=== PATIENT | female | born 1970 | race Hispanic/Latino ===

== ENCOUNTER 2017-07-03 09:57 | Outpatient (CLI) | payer OTHER ==
--- OUTSIDE RECORDS SUMMARY | 2017-07-03 10:01 | XMS | Clinical Summary ---
:1970 Author Organization [facility] Address [address] [place] [address] Phone Care Team Providers Name Role Phone , Primary Care Provider Unavailable Allergies Not on File Current Medications Not on file Active Problems Not on file Social History Tobacco Use Types Packs/Day Years Used Date Never Assessed Sex Assigned at Date Recorded Not on file Last Filed Vital Signs Not on file Plan of Treatment Not on file Results Not on filefrom Last 3 Months
--- OUTSIDE RECORDS SUMMARY | 2017-07-03 10:02 | XMS ---
:1970 Author Organization [facility] Care Team Providers Name Role Phone WEERATUNGE, CHAMALEE Unavailable Unavailable WEERATUNGE, CHAMALEE Unavailable Unavailable WEERATUNGE, CHAMALEE Unavailable Unavailable WEERATUNGE, CHAMALEE Unavailable Unavailable WEERATUNGE, CHAMALEE Unavailable Unavailable WEERATUNGE, CHAMALEE Unavailable Unavailable WEERATUNGE, CHAMALEE Unavailable Unavailable WEERATUNGE, CHAMALEE Unavailable Unavailable JOSSELINE, RAJAT Unavailable Unavailable JOSSELINE, RAJAT Unavailable Unavailable JOSSELINE, RAJAT Unavailable Unavailable JOSSELINE, RAJAT Unavailable Unavailable JOSSELINE, RAJAT Unavailable Unavailable JOSSELINE, RAJAT Unavailable Unavailable JOSSELINE, RAJAT Unavailable Unavailable JOSSELINE, RAJAT Unavailable Unavailable JOSSELINE, RAJAT Unavailable Unavailable JOSSELINE, RAJAT Unavailable Unavailable JOSSELINE, RAJAT Unavailable Unavailable Emilia, Maurisio Unavailable Emilia, Maurisio Unavailable Emilia, Maurisio Unavailable Emilia, Maurisio Unavailable Emilia, Maurisio Unavailable Emilia, Maurisio Unavailable Emilia, Maurisio Unavailable RAMON, NE Unavailable Unavailable RAMON, NE Unavailable Unavailable RAMON, NE Unavailable Unavailable RAMON, NE Unavailable Unavailable RAMON, NE Unavailable Unavailable RAMON, NE Unavailable Unavailable RAMON, NE Unavailable Unavailable RAMON, NE Unavailable Unavailable RAMON, NE Unavailable Unavailable RAMON, NE Unavailable Unavailable RAMON, NE Unavailable Unavailable Lydia, Lacy Unavailable Unavailable Lydia, Lacy Unavailable Unavailable Encounters Encounter Providers Location Date Indications Data Source(s) Outpatient Attender: NE 07/01/2015 [facility] MD 09:54:24 AM CDT Outpatient Attender: Maurisio Nieto 07/27/2014 [facility] 02:22:17 PM CDT Outpatient Attender: Maurisio Nieto 05/15/2014 [facility] 01:50:40 PM CDT Outpatient Attender: RAJAT MANJARREZ 12/17/2014 [facility] 09:01:50 AM CDT Outpatient Attender: RAJAT MANJARREZ 05/18/2015 [facility] 03:44:57 PM CDT Outpatient Attender: Maurisio Nieto 03/30/2015 [facility] 01:02:34 PM CDT Outpatient Attender: RAJAT MANJARREZ 03/08/2015 [facility] 03:04:24 PM CDT Outpatient Attender: Maurisio Nieto 12/21/2014 [facility] 03:49:15 PM CDT Outpatient Attender: Maurisio Nieto 12/31/2014 [facility] 01:14:01 PM CDT Outpatient Attender: RAJAT MANJARREZ 09/11/2014 [facility] 10:42:05 AM 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 Outpatient Attender: RAJAT MANJARREZ 09/08/2014 [facility] 04:03:36 PM 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 Outpatient Attender: Maurisio Nieto 06/11/2014 [facility] 02:42:29 PM CDT Outpatient Attender: RAJAT MANJARREZ 07/17/2014 [facility] 09:53:39 AM CDT Outpatient Attender: Maurisio Nieto 05/18/2014 [facility] 09:16:28 AM CDT Outpatient Attender: ERLINDA 12/18/2013 [facility] OTF COOKdmitter: 02:18:13 PM CDT ERLINDA VANESSA - 12/18/2013 MDReferrer: ERLINDA 11:59:59 PM CDT [facility] Outpatient Attender: Laila Freeman 12/10/2012 [facility] 08:13:59 AM CDT - 12/10/2012 02:26:56 PM CDT Outpatient Attender: Laila Freeman 12/11/2012 [facility] 08:09:59 AM CDT Outpatient Attender: Laila Freeman 12/23/2012 [facility] 04:11:07 PM CDT Outpatient Attender: Laila Freeman 12/16/2012 [facility] 09:29:17 PM CDT Outpatient Attender: Laila Freeman 02/19/2012 [facility] 11:14:36 AM CDT - 02/19/2012 02:48:02 PM CDT Outpatient Attender: Laila Freeman 02/13/2012 [facility] 08:05:37 AM CDT - 02/13/2012 12:46:15 PM CDT Outpatient Attender: Laila Freeman 11/24/2011 [facility] 08:23:42 AM 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 Outpatient Attender: Laila Freeman 11/21/2011 [facility] 08:32:31 AM 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 - 11/21/2011 12:19:36 PM 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 Outpatient Attender: Laila Freeman 11/26/2011 [facility] 09:14:36 PM 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 Outpatient Attender: Laila Freeman 10/26/2011 [facility] 01:08:09 PM 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 Outpatient Attender: Laila Freeman 10/29/2011 [facility] 08:55:12 PM 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 Immunizations Vaccine Date Status Description Data Source(s) Pneumococcal vaccine 12/23/2012 04:11:07 completed [facility] PM CDT Influenza vaccine 12/23/2012 04:11:07 completed [facility] PM CDT Tdap 12/23/2012 04:11:07 completed [facility] PM CDT Pneumococcal vaccine 12/16/2012 09:29:17 completed [facility] PM CDT Influenza vaccine 12/16/2012 09:29:17 completed [facility] PM CDT Tdap 12/16/2012 09:29:17 completed [facility] PM CDT Influenza vaccine 12/11/2012 09:00:00 completed [facility] AM CDT Tdap 12/11/2012 09:00:00 completed [facility] AM CDT Pneumococcal vaccine 12/11/2012 09:00:00 completed [facility] AM CDT Tdap 12/10/2012 08:30:00 completed [facility] AM CDT Pneumococcal vaccine 12/10/2012 08:30:00 completed [facility] AM CDT Influenza vaccine 12/10/2012 08:30:00 completed [facility] AM CDT FLU VACCINE 3 YRS & >IM 02/19/2012 11:30:00 completed [facility] AM CDT TDAP VACCINE 7 YRS/>IM 02/19/2012 11:30:00 completed [facility] AM CDT PNEUMOCOCCAL VACCINE 02/19/2012 11:30:00 completed [facility] AM CDT FLU VACCINE 3 YRS & >IM 02/13/2012 08:10:00 completed [facility] AM CDT PNEUMOCOCCAL VACCINE 02/13/2012 08:10:00 completed [facility] AM CDT TDAP VACCINE 7 YRS/>IM 02/13/2012 08:10:00 completed [facility] AM CDT PNEUMOCOCCAL VACCINE 11/26/2011 09:14:36 completed [facility] PM 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 FLU VACCINE 3 YRS & >IM 11/26/2011 09:14:36 completed [facility] PM 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 TDAP VACCINE 7 YRS/>IM 11/26/2011 09:14:36 completed [facility] PM 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 FLU VACCINE 3 YRS & >IM 11/24/2011 08:23:42 completed [facility] AM 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 PNEUMOCOCCAL VACCINE 11/24/2011 08:23:42 completed [facility] AM 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 TDAP VACCINE 7 YRS/>IM 11/24/2011 08:23:42 completed [facility] AM 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 TDAP VACCINE 7 YRS/>IM 11/21/2011 08:30:00 completed [facility] AM 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 FLU VACCINE 3 YRS & >IM 11/21/2011 08:30:00 completed [facility] AM 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 PNEUMOCOCCAL VACCINE 11/21/2011 08:30:00 completed [facility] AM 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 PNEUMOCOCCAL VACCINE 10/29/2011 08:55:12 completed [facility] PM 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 TDAP VACCINE 7 YRS/>IM 10/29/2011 08:55:12 completed [facility] PM 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 FLU VACCINE 3 YRS & >IM 10/29/2011 08:55:12 completed [facility] PM 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 TDAP VACCINE 7 YRS/>IM 10/26/2011 01:30:00 completed [facility] PM 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 PNEUMOCOCCAL VACCINE 10/26/2011 01:30:00 completed [facility] PM 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 FLU VACCINE 3 YRS & >IM 10/26/2011 01:30:00 completed [facility] PM 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 Medications Medication Brand Start Product Dose Route Administrative Pharmacy Status Indications Reaction Data Name Date Form Instructions Instructions Source(s) HYDROCHLORO hydroc 30 take 1 tablet [facility] THIAZIDE hlorot Table by oral route TABLETS 100 hiazid t every day MG 12.5 mg e 12.5 mg tablet 0.025 % 1 instill 1 drop client to [facility] (0.035 %) Bottl by ophthalmic purchase OTC e route 2 times every day into affected eye(s) HYDROCHLORO hydroc 30 take 1/2 [facility] THIAZIDE hlorot Table tablet by oral TABLETS 100 hiazid t route every MG 25 mg e 25 morning mg tablet 25 take 1 tablet [facility] 2011 (25MG) by oral 12:12: route 3 times 33 PM every day as CDT needed DICLOFENAC diclof 60 take 1 tablet [facility] SODIUM enac Table by oral route 2 DELAYED sodium t times every day RELEASE 75 mg TABLETS 100 tablet MG 75 mg ,delay ed releas e 6.5 3gtts bilat R label in [facility] 2011 ear(s) once a Bangladeshi 08:52: day x 3 days 37 AM CDT 10 mg 30 take 1 tablet label in [facility] Table (10MG) by oral Bangladeshi t route every day 5-120 mg 10 take 1 tablet [facility] Table by oral route t every 12 hours OMEPRAZOLE omepra 30 take 1 capsule [facility] CAPSULES zole Capsu by oral route DELAYED 20 mg le every day 30 RELEASE capsul minutes to 1 1000 MG 20 e,ayden hour before a mg yed meal releas e SUMATRIPTAN sumatr 6 take 1 Tablet [facility] SUCCINATE iptan Table by oral route TABLETS 9 50 mg t once with TABLETS MG tablet fluids, may 50 mg repeat in 2 hours, no more than 4tabs in a day PROVERA Advertising Coordinator 10 take 1 tablet [facility] TABLETS 500 a 10 Table by oral route MG 10 mg mg t every day for tablet 10 days 250 take 2 tablet [facility] 2011 (500MG) by 08:25: oral route 25 AM every 12 hours 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 for 7 days Insurance Providers Payer name Policy type Policy ID Covered Covered republican's Policy Plan / Coverage republican ID relationship to Mae Information type mae [employer] Other [id number] Healthcare 23_IN_1 [employer] Other [id number] Healthcare 78_IN_1 [employer] Other [id number] Healthcare 33 Ministries men Plan Monique NOT_[id number] 31 Medical Slide UNK NOT_VALID_[phone] [facility] Medical UNK NOT_VALID_1446 Slide [phone] [facility] Medical UNK NOT_VALID_1437 Slide [phone] Medical Slide UNK NOT_VALID_[phone] [facility] Medical UNK NOT_VALID_1353 Slide [phone] [employer] UNK NOT_VALID_1279 Slide [phone] [employer] UNK NOT_VALID_1318 Slide [phone] Medical Slide UNK NOT_VALID_[phone] [employer] Other NOT_VALID_[id number] Healthcare 975 [employer]ries [employer] Other NOT_VALID_1257 Healthcare 666 Ministries [employer] UNK NOT_VALID_1521 Slide [phone] [facility] [employer] UNK NOT_VALID_1256 Slide [phone] [facility] [employer] UNK NOT_VALID_1502 Slide [phone] [facility] UNK NOT_VALID_1610 Slide [phone] Government/S NOT_VALID_[id number] montes 214_IN_1 Problems, Conditions, and Diagnoses Code Display Name Description Effective Dates Data Source(s) Z68.29 Body mass index (BMI) Body mass index (BMI) 07/01/2015 [facility] 29.0-29.9, adult 29.0-29.9, adult 09:54:24 AM CDT J30.1 Allergic rhinitis due to Allergic rhinitis due 07/01/2015 [facility] pollen to pollen 09:54:24 AM CDT I10 Essential (primary) Essential (primary) 07/01/2015 [facility] hypertension hypertension 09:54:24 AM CDT 401.9 UNSPECIFIED ESSENTIAL HYPERTENSION NOS 12/21/2014 [facility] HYPERTENSION 03:49:15 PM CDT 620.2 OTHER AND UNSPECIFIED OVARIAN CYST NEC/NOS 12/17/2014 [facility] OVARIAN CYST 09:01:50 AM CDT 218.9 LEIOMYOMA OF UTERUS UTERINE LEIOMYOMA NOS 12/17/2014 [facility] UNSPECIFIED 09:01:50 AM CDT 620.2 OTHER AND UNSPECIFIED OVARIAN CYST NEC/NOS 09/11/2014 [facility] OVARIAN CYST 10:42:05 AM 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 218.9 LEIOMYOMA OF UTERUS UTERINE LEIOMYOMA NOS 09/11/2014 [facility] UNSPECIFIED 10:42:05 AM 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 218.9 LEIOMYOMA OF UTERUS UTERINE LEIOMYOMA NOS 07/27/2014 [facility] UNSPECIFIED 02:22:17 PM CDT 285.9 ANEMIA UNSPECIFIED ANEMIA NOS 07/27/2014 [facility] 02:22:17 PM CDT 620.2 OTHER AND UNSPECIFIED OVARIAN CYST NEC/NOS 07/17/2014 [facility] OVARIAN CYST 09:53:39 AM CDT 218.9 LEIOMYOMA OF UTERUS UTERINE LEIOMYOMA NOS 07/17/2014 [facility] UNSPECIFIED 09:53:39 AM CDT 789.00 ABDOMINAL PAIN ABDMNAL PAIN UNSPCF 06/11/2014 [facility] UNSPECIFIED SITE SITE 02:42:29 PM CDT 626.4 IRREGULAR MENSTRUAL IRREGULAR 05/15/2014 [facility] CYCLE MENSTRUATION 01:50:40 PM CDT 625.9 UNSPECIFIED SYMPTOM FEM GENITAL SYMPTOMS 05/15/2014 [facility] ASSOCIATED WITH FEMALE NOS 01:50:40 PM CDT GENITAL ORGANS V72.31 ROUTINE GYNECOLOGICAL ROUTINE NURSE CHEMICAL DEPENDENCY 05/15/2014 [facility] EXAMINATION EXAMINATION 01:50:40 PM CDT 789.00 ABDOMINAL PAIN ABDMNAL PAIN UNSPCF 05/15/2014 [facility] UNSPECIFIED SITE SITE 01:50:40 PM CDT V76.10 BREAST SCREENING SCRN MAL MARIE BREAST 12/11/2012 [facility] UNSPECIFIED NOS 08:09:59 AM CDT V72.31 ROUTINE GYNECOLOGICAL ROUTINE NURSE CHEMICAL DEPENDENCY 12/10/2012 [facility] EXAMINATION EXAMINATION 08:13:59 AM CDT 780.4 DIZZINESS AND GIDDINESS DIZZINESS AND 02/19/2012 [facility] GIDDINESS 11:14:36 AM CDT 380.4 IMPACTED CERUMEN IMPACTED CERUMEN 02/13/2012 [facility] 08:05:37 AM CDT 616.10 VAGINITIS AND VAGINITIS NOS 11/24/2011 [facility] VULVOVAGINITIS 08:23:42 AM 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 UNSPECIFIED V72.31 ROUTINE GYNECOLOGICAL ROUTINE NURSE CHEMICAL DEPENDENCY 11/21/2011 [facility] EXAMINATION EXAMINATION 08:32:31 AM 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 790.6 OTHER ABNORMAL BLOOD ABN BLOOD CHEMISTRY 10/29/2011 [facility] CHEMISTRY NEC 08:55:12 PM 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 462 ACUTE PHARYNGITIS ACUTE PHARYNGITIS 10/26/2011 [facility] 01:08:09 PM 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 477 ALLERGIC RHINITIS ALLERGIC RHINITIS 10/26/2011 [facility] 01:08:09 PM 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 796.2 ELEVATED BLOOD PRESSURE ELEV BL PRES W/O 10/26/2011 [facility] READING WITHOUT HYPERTN 01:08:09 PM 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 DIAGNOSIS OF HYPERTENSION V74.1 SCREENING EXAMINATION SCREENING EXAMINATION CT FOR PULMONARY FOR PULMONARY TUBERCULOSIS TUBERCULOSIS V74.1 SCREENING EXAMINATION SCREENING EXAMINATION CT FOR PULMONARY FOR PULMONARY TUBERCULOSIS TUBERCULOSIS Surgeries/Procedures Procedure Date Indications Data Source(s) OFFICE/OUTPATIENT VISIT EST 07/01/2015 09:54:24 AM [facility] CDT Betamethasone acet&sod phosp 07/01/2015 09:54:24 AM [facility] CDT OFFICE/OUTPATIENT VISIT EST 12/21/2014 03:49:15 PM [facility] CDT OFFICE/OUTPATIENT VISIT EST 12/17/2014 09:01:50 AM [facility] CDT OFFICE/OUTPATIENT VISIT EST 09/11/2014 10:42:05 AM [facility] 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 OFFICE/OUTPATIENT VISIT EST 07/27/2014 02:22:17 PM [facility] CDT OFFICE/OUTPATIENT VISIT NEW 07/17/2014 09:53:39 AM [facility] CDT URINALYSIS AUTO W/SCOPE 06/11/2014 02:42:29 PM [facility] CDT OFFICE/OUTPATIENT VISIT EST 06/11/2014 02:42:29 PM [facility] CDT OFFICE/OUTPATIENT VISIT EST 05/15/2014 01:50:40 PM [facility] CDT URINE TEST 05/15/2014 01:50:40 PM [facility] CDT OFFICE/OUTPATIENT VISIT EST 12/11/2012 08:09:59 AM [facility] CDT DETECT AGNT MULT DNA DIREC 12/10/2012 08:13:59 AM [facility] CDT HIV-1ANTIBODY 12/10/2012 08:13:59 AM [facility] CDT CHYLMD TRACH DNA DIR PROBE 12/10/2012 08:13:59 AM [facility] CDT LIPID PANEL 12/10/2012 08:13:59 AM [facility] CDT CYTOPATH TBS C/V MANUAL 12/10/2012 08:13:59 AM [facility] CDT PREV VISIT EST AGE 40-64 12/10/2012 08:13:59 AM [facility] CDT ASSAY THYROID STIM HORMONE 12/10/2012 08:13:59 AM [facility] CDT COMPLETE CBC W/AUTO DIFF WBC 12/10/2012 08:13:59 AM [facility] CDT SYPHILIS TEST NON-TREP QUAL 12/10/2012 08:13:59 AM [facility] CDT SMEAR GRAM STAIN 12/10/2012 08:13:59 AM [facility] CDT COMPREHEN METABOLIC PANEL 12/10/2012 08:13:59 AM [facility] CDT CYTOPATH C/V THIN LAYER 12/10/2012 08:13:59 AM [facility] CDT GLYCOSYLATED HEMOGLOBIN TEST 12/10/2012 08:13:59 AM [facility] CDT N.GONORRHOEAE DNA DIR PROB 12/10/2012 08:13:59 AM [facility] CDT HERPES SIMPLEX TYPE 1 TEST 12/10/2012 08:13:59 AM [facility] CDT Vital Signs [id number] 07/22/2015 07:42:16 AM CDT Name Value Range Interpretation Code Data Source(s) Respiration Rate 20 [/min] [facility] Body Temperature 98.00 [degF] [facility] Heart rate 78 [/min] [facility] Oxygen saturation in Arterial 99 null [facility] blood by Pulse oximetry Pain on a scale of 1-10 null 1 [facility] Diastolic blood pressure 84 mm[Hg] [facility] Systolic blood pressure 131 mm[Hg] [facility] Body mass index (BMI) [Ratio] 29.04 null [facility] Body height Measured 59.00 [inches] [facility] Body weight 143.80 [lbs] [facility] [id number] 05/20/2015 07:55:28 AM CDT Name Value Range Interpretation Code Data Source(s) Respiration Rate 20 [/min] [facility] Body Temperature 98.3 [degF] [facility] Heart rate 85 [/min] [facility] Oxygen saturation in Arterial 98 null [facility] blood by Pulse oximetry Diastolic blood pressure 84 mm[Hg] [facility] Systolic blood pressure 132 mm[Hg] [facility] Body mass index (BMI) [Ratio] 28.88 null [facility] Body height Measured 59.00 [inches] [facility] Body weight 143.00 [lbs] [facility] [id number] 05/20/2015 07:40:03 AM CDT Name Value Range Interpretation Code Data Source(s) Respiration Rate 20 [/min] [facility] Body Temperature 97.0 [degF] [facility] Heart rate 75 [/min] [facility] Oxygen saturation in Arterial 99 null [facility] blood by Pulse oximetry Diastolic blood pressure 84 mm[Hg] [facility] Systolic blood pressure 163 mm[Hg] [facility] Body mass index (BMI) [Ratio] 30.09 null [facility] Body height Measured 59.00 [inches] [facility] Body weight 149.00 [lbs] [facility] [id number] 02/05/2015 07:38:34 AM CDT Name Value Range Interpretation Code Data Source(s) Respiration Rate 18 [/min] [facility] Body Temperature 98.5 [degF] [facility] Heart rate 87 [/min] [facility] Oxygen saturation in Arterial 98 null [facility] blood by Pulse oximetry Diastolic blood pressure 86 mm[Hg] [facility] Systolic blood pressure 144 mm[Hg] [facility] Body mass index (BMI) [Ratio] 29.37 null [facility] Body height Measured 59.00 [inches] [facility] Body weight 145.40 [lbs] [facility] [id number] 01/01/2015 07:44:17 AM CDT Name Value Range Interpretation Code Data Source(s) Heart rate 80 [/min] [facility] Oxygen saturation in Arterial 100 null [facility] blood by Pulse oximetry Diastolic blood pressure 88 mm[Hg] [facility] Systolic blood pressure 132 mm[Hg] [facility] [id number] 09/14/2014 07:13:08 AM 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 Name Value Range Interpretation Code Data Source(s) Respiration Rate 20 [/min] [facility] Body Temperature 98.2 [degF] [facility] Heart rate 74 [/min] [facility] Oxygen saturation in Arterial 100 null [facility] blood by Pulse oximetry Diastolic blood pressure 80 mm[Hg] [facility] Systolic blood pressure 134 mm[Hg] [facility] Body mass index (BMI) [Ratio] 28.48 null [facility] Body height Measured 59.00 [inches] [facility] Body weight 141.00 [lbs] [facility] [id number] 08/04/2014 07:23:20 AM 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 Name Value Range Interpretation Code Data Source(s) Respiration Rate 18 [/min] [facility] Body Temperature 98.9 [degF] [facility] Heart rate 76 [/min] [facility] Oxygen saturation in Arterial 99 null [facility] blood by Pulse oximetry Diastolic blood pressure 91 mm[Hg] [facility] Systolic blood pressure 134 mm[Hg] [facility] Body mass index (BMI) [Ratio] 28.88 null [facility] Body height Measured 59.00 [inches] [facility] Body weight 143.00 [lbs] [facility] [id number] 07/23/2014 07:13:49 AM CDT Name Value Range Interpretation Code Data Source(s) Respiration Rate 20 [/min] [facility] Body Temperature 97.5 [degF] [facility] Heart rate 76 [/min] [facility] Oxygen saturation in Arterial 98 null [facility] blood by Pulse oximetry Diastolic blood pressure 89 mm[Hg] [facility] Systolic blood pressure 129 mm[Hg] [facility] Body mass index (BMI) [Ratio] 28.48 null [facility] Body height Measured 59.00 [inches] [facility] Body weight 141.00 [lbs] [facility] [id number] 06/01/2013 05:51:07 PM CDT Name Value Range Interpretation Code Data Source(s) Respiration Rate 16 [/min] [facility] Body Temperature 98.8 [degF] [facility] Heart rate 83 [/min] [facility] Oxygen saturation in Arterial 100 null [facility] blood by Pulse oximetry Diastolic blood pressure 89 mm[Hg] [facility] Systolic blood pressure 121 mm[Hg] [facility] Body mass index (BMI) [Ratio] 27.67 null [facility] Body height Measured 59.00 [inches] [facility] Body weight 137.00 [lbs] [facility] [id number] 01/31/2013 07:42:11 PM CDT Name Value Range Interpretation Code Data Source(s) Respiration Rate 18 [/min] [facility] Body Temperature 97.4 [degF] [facility] Heart rate 67 [/min] [facility] Oxygen saturation in Arterial 100 null [facility] blood by Pulse oximetry Diastolic blood pressure 85 mm[Hg] [facility] Systolic blood pressure 130 mm[Hg] [facility] Body mass index (BMI) [Ratio] 28.28 null [facility] Body height Measured 59.00 [inches] [facility] Body weight 140.00 [lbs] [facility] [id number] 09/26/2012 05:35:54 PM 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 Name Value Range Interpretation Code Data Source(s) Respiration Rate 20 [/min] [facility] Body Temperature 98.4 [degF] [facility] Heart rate 86 [/min] [facility] Oxygen saturation in Arterial 100 null [facility] blood by Pulse oximetry Diastolic blood pressure 72 mm[Hg] [facility] Systolic blood pressure 112 mm[Hg] [facility] Body mass index (BMI) [Ratio] 26.05 null [facility] Body height Measured 59.00 [inches] [facility] Body weight Measured 129.00 [lbs] [facility] [id number] 09/26/2012 05:06:57 PM 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 Name Value Range Interpretation Code Data Source(s) Respiration Rate 16 [/min] [facility] Body Temperature 98.2 [degF] [facility] Heart rate 75 [/min] [facility] Oxygen saturation in Arterial 100 null [facility] blood by Pulse oximetry Diastolic blood pressure 78 mm[Hg] [facility] Systolic blood pressure 120 mm[Hg] [facility] Body mass index (BMI) [Ratio] 26.66 null [facility] Body height Measured 59.00 [inches] [facility] Body weight Measured 132.00 [lbs] [facility] [id number] 09/26/2012 01:58:04 PM 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 Name Value Range Interpretation Code Data Source(s) Respiration Rate 16 [/min] [facility] Body Temperature 98.8 [degF] [facility] Heart rate 85 [/min] [facility] Oxygen saturation in Arterial 100 null [facility] blood by Pulse oximetry Diastolic blood pressure 81 mm[Hg] [facility] Systolic blood pressure 118 mm[Hg] [facility] Body mass index (BMI) [Ratio] 26.66 null [facility] Body height Measured 59.00 [inches] [facility] Body weight Measured 132.00 [lbs] [facility] [id number] 09/26/2012 11:59:20 AM [facility] Name Value Range Interpretation Code Data Source(s) Body Temperature 98.7 [degF] [facility] Heart rate 79 [/min] [facility] Oxygen saturation in Arterial 100 null [facility] blood by Pulse oximetry Diastolic blood pressure 83 mm[Hg] [facility] Systolic blood pressure 134 mm[Hg] [facility] Body mass index (BMI) [Ratio] 26.46 null [facility] Body height Measured 59.00 [inches] [facility] Body weight Measured 131.00 [lbs] [facility]
== END 2017-07-03 09:58 | disposition home or self-care (01) ==
LOC: DTY/OP 09:57
PROVIDERS: ATTEND Surgery
DX: E66.01 Morbid (severe) obesity due to excess calories (principal)
CPT/HCPCS: 97802

== ENCOUNTER 2017-07-04 20:30 | Outpatient (CLI) | payer OTHER ==
--- OUTSIDE RECORDS SUMMARY | 2017-07-05 08:52 | XMS | Clinical Summary ---
:1970 Author Organization [facility] Address [address] [place] [address] Phone Care Team Providers Name Role Phone [...]
== END 2017-07-04 20:31 | disposition home or self-care (01) ==
LOC: SLEEPLAB 20:30
PROVIDERS: ATTEND Internal Medicine Pulmonary Disease
DX: G47.33 Obstructive sleep apnea (adult) (pediatric) (principal); R53.83 Other fatigue; R40.0 Somnolence; I10 Essential (primary) hypertension; E11.9 Type 2 diabetes mellitus without complications
CPT/HCPCS: 95810

== ENCOUNTER 2017-07-11 20:30 | Outpatient (CLI) | payer OTHER | END 2017-07-11 20:31 | disposition home or self-care (01) | LOC: SLEEPLAB 20:30 | PROVIDERS: ATTEND Internal Medicine Pulmonary Disease | DX: G47.33 Obstructive sleep apnea (adult) (pediatric) (principal) | CPT/HCPCS: 95811 ==

== ENCOUNTER 2017-08-27 15:40 | Outpatient (CLI) | payer OTHER | END 2017-08-27 15:41 | disposition home or self-care (01) | LOC: DTY/OP 15:40 | PROVIDERS: ATTEND Surgery | DX: E66.01 Morbid (severe) obesity due to excess calories (principal) | CPT/HCPCS: 97802 ==

== ENCOUNTER 2017-09-19 08:44 | Outpatient (CLI) | payer OTHER | END 2017-09-19 08:45 | disposition home or self-care (01) | LOC: DTY/OP 08:44 | PROVIDERS: ATTEND Surgery | DX: E66.01 Morbid (severe) obesity due to excess calories (principal) | CPT/HCPCS: 97802 ==

== ENCOUNTER 2017-10-22 08:53 | Outpatient (CLI) | payer OTHER | END 2017-10-22 08:54 | disposition home or self-care (01) | LOC: DTY/OP 08:53 | PROVIDERS: ATTEND Surgery | DX: E66.01 Morbid (severe) obesity due to excess calories (principal) | CPT/HCPCS: 97802 ==

== ENCOUNTER 2017-11-27 09:06 | Outpatient (CLI) | payer OTHER | END 2017-11-27 09:07 | disposition home or self-care (01) | LOC: DTY/OP 09:06 | PROVIDERS: ATTEND Surgery | DX: E66.01 Morbid (severe) obesity due to excess calories (principal) | CPT/HCPCS: 97802 ==

== ENCOUNTER 2017-12-24 09:25 | Outpatient (CLI) | payer OTHER | END 2017-12-24 09:26 | disposition home or self-care (01) | LOC: DTY/OP 09:25 | PROVIDERS: ATTEND Surgery | DX: E66.01 Morbid (severe) obesity due to excess calories (principal) | CPT/HCPCS: 97802 ==

== ENCOUNTER 2018-01-21 16:03 | Outpatient (CLI) | payer OTHER ==
--- NOTE | 2018-01-21 12:49 | RAD ---
PA AND LATERAL CHEST RADIOGRAPH: Date: 01-21-18 History: Dyspnea. Comparison: 10-05-16 FINDINGS: Cardiac silhouette and pulmonary vasculature are within normal limits. The lungs are clear. Post-surg ical changes related to posterior fusion of the thoracolumbar spine are now present with multiple bip edicular screws and posterior rods transfixing the thoracolumbar spine. No other interval change. IMPRESSION: No acute cardiopulmonary process. POS: [facility]
== END 2018-01-21 16:04 | disposition home or self-care (01) ==
LOC: RAD 16:03
PROVIDERS: ATTEND Internal Medicine Pulmonary Disease
DX: R06.00 Dyspnea, unspecified (principal)
CPT/HCPCS: 71046

== ENCOUNTER 2018-05-13 08:38 | Outpatient (CLI) | payer OTHER ==
[2018-05-13 09:58] LABS: Hemoglobin 13.2 g/dL (12.0-16.0); Mean Corpuscular HGB CONC 34.7 g/dL (32.0-36.0); Mean Corpuscular Hemoglobin 31.8 pg (27.0-31.0); Mean Corpuscular Volume 91.6 fL (78.0-98.0); Mean Platelet Volume 7.3 fL (7.4-10.4); Platelet Count 256 thou/uL (130-400); RBC Distribution Width 13.3 % (11.5-14.5); Red Blood Cell (RBC) Count 4.15 mill/uL (4.20-5.40); White Blood Cell (WBC) Count 8.3 thou/uL (4.8-10.8)
[2018-05-13 10:00] LABS: Pregnancy Test - Urine (BHCG) Negative (Negative); Pregu Control Background? CLEAR/WHITE (CLR/WHITE); Pregu Control Bar Appear? YES (CONTROL BAR); Specific Gravity 1.017 (1.002-1.036)
[2018-05-13 10:03] LABS: PTT 29.5 SEC (22.9-36.1); Prothrombin Time 12.9 SEC (12.0-14.7)
[2018-05-13 10:28] LABS: ALT (SGPT) 15 U/L (8-55); AST (SGOT) 14 U/L (5-34); Albumin 4.3 g/dL (3.5-5.0); Alkaline Phosphatase 78 U/L (40-150); Anion Gap 13 mmol/L (10-20); BUN (Urea Nitrogen) 24 mg/dL (7.0-18.7); Bilirubin, Total 0.6 mg/dL (0.2-1.2); Calc. Creatinine Clearance 0 mL/min (70-130); Calcium 9.9 mg/dL (7.8-10.44); Carbon Dioxide 27 mmol/L (22-29); Cardiac Risk 3.5 (Less than 4.5); Chloride 102 mmol/L (98-107); Cholesterol 182 mg/dl (< 200 Desired); Estimated GFR-MDRD 61; Globulin 3.2 g/dL (2.4-3.5); Glucose 132 mg/dL (70-105); HDL Cholesterol 52 mg/dL (>60 Neg Risk); LDL Cholesterol, Calculated 85 mg/dL; Potassium 3.6 mmol/L (3.5-5.1); Protein, Total 7.5 g/dL (6.0-8.3); Sodium 138 mmol/L (136-145); Triglycerides 225 mg/dL (Less than 150)
--- NOTE | 2018-05-14 06:55 | EKG ---
Test Reason : Blood Pressure : / mmHG Vent. Rate : 063 BPM Atrial Rate : 063 BPM P-R Int : 186 ms QRS Dur : 102 ms QT Int : 436 ms P-R-T Axes : 053 008 026 degrees QTc Int : 446 ms Normal sinus rhythm Low voltage QRS Cannot rule out Anterior infarct , age undetermined Abnormal ECG When compared with ECG of 11-NOV-2016 09:24, Fusion complexes are no longer Present Vent. rate has decreased BY 76 BPM Confirmed by KANDY POSEY ([id number]) on 05/14/2018 6:54:50 AM Referred By: SHARMAINE Confirmed By:KANDY POSEY
== END 2018-05-13 08:39 | disposition home or self-care (01) ==
LOC: LABBT 08:38
PROVIDERS: ATTEND Internal Medicine Cardiovascular Disease
DX: Z01.818 Encounter for other preprocedural examination (principal); R94.39 Abnormal result of other cardiovascular function study
CPT/HCPCS: 80053; 80061; 81025; 85027; 85610; 85730; 93005; 93010

== ENCOUNTER 2018-05-16 06:02 | Day surgery (SDC) | payer OTHER ==
[2018-05-13 08:58] VITALS: BMI 54.8
[2018-05-16] MEDS ORDERED: Fentanyl 100 MCG/2 ML VIAL ONE ×2 (07:34→10:37)
[2018-05-16] MEDS ORDERED: Midazolam HCl 2 mg/2 ml Vial ONE (07:34)
[2018-05-16] MEDS ORDERED: Nitroglycerin 100MG/250ML BOT 250 ML ONE (09:18)
[2018-05-16] MEDS ORDERED: Verapamil 5 MG/2 ML VIAL ONE (09:18)
[2018-05-16] MEDS ORDERED: Heparin 10,000 UNITS/1 ML VIAL ONE (09:18)
[2018-05-16] MEDS ORDERED: HYDROcodone/Acetaminophen 10/325 mg Tablet PO PRN (10:57)
[2018-05-16] MEDS ORDERED: Fentanyl 100 MCG/2 ML VIAL SLOW IVP SCH (11:00)
[2018-05-16] MEDS ORDERED: HYDROcodone/Acetaminophen 10/325 mg Tablet ONE (11:06)
[2018-05-16] MEDS ORDERED: Iopamidol 370 76% 100 ML VIAL ONE (11:26)
== END 2018-05-16 14:13 | disposition home or self-care (01) ==
LOC: CCL 06:02
PROVIDERS: ATTEND Internal Medicine Cardiovascular Disease
DX: I25.10 Atherosclerotic heart disease of native coronary artery without angina pectoris (principal); E78.00 Pure hypercholesterolemia, unspecified; I10 Essential (primary) hypertension; E11.9 Type 2 diabetes mellitus without complications; E66.9 Obesity, unspecified; Z79.84 Long term (current) use of oral hypoglycemic drugs; Z79.899 Other long term (current) drug therapy; Z88.2 Allergy status to sulfonamides; Z88.0 Allergy status to penicillin; Z91.040 Latex allergy status; Z68.43 Body mass index [BMI] 50.0-59.9, adult
CPT/HCPCS: 36416; 93458; 93798; 96374; 99152; 99153; C1760; C1769; J1644; J2250; J3010

== ENCOUNTER 2018-09-26 05:27 | Outpatient (CLI) | payer OTHER ==
[2018-09-26 11:14] LABS: #Basophils 0.1 thou/uL (0.0-0.2); #Eosinphils 0.2 thou/uL (0.0-0.7); #Lymphocytes 2.4 thou/uL (1.20-3.40); #Monocytes 0.6 thou/uL (0.11-0.59); #Neutrophils 5.1 thou/uL (1.40-6.50); %Basophils 0.7 % (0.0-1.0); %Eosinophils 2.2 % (0.0-10.0); %Lymphocytes 28.5 % (21.0-51.0); %Monocytes 7.3 % (0.0-10.0); %Neutrophils 61.3 % (42.0-75.0); Hemoglobin 13.5 g/dL (12.0-16.0); Mean Corpuscular HGB CONC 33.7 g/dL (32.0-36.0); Mean Corpuscular Hemoglobin 30.8 pg (27.0-31.0); Mean Corpuscular Volume 91.5 fL (78.0-98.0); Mean Platelet Volume 7.9 fL (7.4-10.4); Platelet Count 267 thou/uL (130-400); RBC Distribution Width 12.5 % (11.5-14.5); Red Blood Cell (RBC) Count 4.38 mill/uL (4.20-5.40); White Blood Cell (WBC) Count 8.3 thou/uL (4.8-10.8)
[2018-09-26 11:21] LABS: BHCG - Serum Negative (NEGATIVE); Pregs Control Background? CLEAR/WHITE (CLR/WHITE); Pregs Control Bar Appear? YES (CONTROL BAR)
[2018-09-26 11:29] LABS: Hemoglobin A1c 5.9 % (4.0-6.0)
--- NOTE | 2018-09-26 11:39 | RAD ---
EXAM: CHEST ONE VIEW: History: 48-year-old female history of pre-operative evaluation for gastric sleeve. Comparison: 01-20-18 FINDINGS: Rods and pedicle screws stabilize the thoracolumbar vertebral column. Somewhat focally ectatic aortic arch region with some associated increased density. Stable from 01-21-18. IMPRESSION: Some focal ectatic changes of the arch of the aorta but stable. Stable pedicle screws and rods stabil izing the thoracic lumbar spine. No significant acute intrathoracic disease. POS: [facility]
[2018-09-26 11:43] LABS: ALT (SGPT) 22 U/L (8-55); AST (SGOT) 19 U/L (5-34); Albumin 4.4 g/dL (3.5-5.0); Alkaline Phosphatase 68 U/L (40-150); Anion Gap 16 mmol/L (10-20); BUN (Urea Nitrogen) 29 mg/dL (7.0-18.7); Bilirubin, Direct 0.3 mg/dL (0.1-0.3); Bilirubin, Total 0.7 mg/dL (0.2-1.2); Calc. Creatinine Clearance 0 mL/min (70-130); Carbon Dioxide 26 mmol/L (22-29); Chloride 100 mmol/L (98-107); Estimated GFR-MDRD 61; Globulin 3.7 g/dL (2.4-3.5); Glucose 122 mg/dL (70-105); Potassium 3.6 mmol/L (3.5-5.1); Protein, Total 8.1 g/dL (6.0-8.3); Sodium 138 mmol/L (136-145)
== END 2018-09-26 05:28 | disposition home or self-care (01) ==
LOC: LABBT 05:27
PROVIDERS: ATTEND Surgery
DX: Z01.818 Encounter for other preprocedural examination (principal); E78.5 Hyperlipidemia, unspecified; I10 Essential (primary) hypertension; E11.9 Type 2 diabetes mellitus without complications
CPT/HCPCS: 71045; 80053; 80076; 83036; 84703; 85025; 93005; 93010

== ENCOUNTER 2018-09-26 09:30 | Inpatient (IN) | payer OTHER ==
[2018-09-26 09:52] VITALS: BMI 53.8
[2018-10-02] MEDS ORDERED: Heparin 5,000 UNITS/ML VIAL ONE (08:28)
[2018-10-02] MEDS ORDERED: Levofloxacin 500 mg/D5W 100 ml Premix Bag ONE (09:15)
[2018-10-02] MEDS ORDERED: Fentanyl 250 MCG/5 ML VIAL ONE (09:16)
[2018-10-02] MEDS ORDERED: Lidocaine 2% Jelly 5 ML TUBE ONE (09:16)
[2018-10-02] MEDS ORDERED: Midazolam HCl 2 mg/2 ml Vial ONE (09:16)
[2018-10-02] MEDS ORDERED: Bupivacaine/Epinephrine 0.25% 30 ML VIAL ONE (09:27)
[2018-10-02] MEDS ORDERED: Dextrose 5% in Water 1,000 ML IV PRN (10:59)
[2018-10-02] MEDS ORDERED: hydrALAZINE 20 MG/ML VIAL SLOW IVP PRN (10:59)
[2018-10-02] MEDS ORDERED: diphenhydrAMINE 50 MG/ML VIAL IVP PRN ×2 (10:59→11:43)
[2018-10-02] MEDS ORDERED: Promethazine HCl 25 MG/ML VIAL IM PRN ×3 (10:59→11:43)
[2018-10-02] MEDS ORDERED: Ondansetron PF 4 MG/2 ML Vial IVP PRN ×2 (10:59→11:43)
[2018-10-02] MEDS ORDERED: Hydrocodone-Acetamin 15 ML UDCUP PO PRN (10:59)
[2018-10-02] MEDS ORDERED: Dextrose 50% Abboject 50 ML SYRINGE SLOW IVP PRN (10:59)
[2018-10-02] MEDS ORDERED: Promethazine HCl 25 MG/ML VIAL ONE (11:08)
[2018-10-02] MEDS ORDERED: Ondansetron HCl/PF 4 MG/2 ML Vial IVP PRN (11:09)
[2018-10-02] MEDS ORDERED: Promethazine HCl 25 MG/ML VIAL SLOW IVP PRN (11:09)
[2018-10-02] MEDS ORDERED: Fentanyl 100 MCG/2 ML VIAL ONE ×2 (11:20→11:44)
--- NOTE | 2018-10-02 11:22 | OP ---
DATE OF PROCEDURE: 10/02/2018 PREOPERATIVE DIAGNOSIS: Morbid obesity. PROCEDURES PERFORMED: Laparoscopic sleeve gastrectomy with esophagogastroscopy. INDICATIONS: A 48-year-old female, morbidly obese, who was attempted multiple weight loss programs without success. FINDINGS: 38-Tajik bougie was used. DESCRIPTION OF PROCEDURE: After informed consent was obtained, the patient was taken to the operating room and given general endotracheal anesthesia, placed in supine position. Abdomen was prepped and draped in usual fashion. Local anesthesia infiltrated subcutaneously and deep, and a 12-mm incision was performed approximately 8 inches below the xiphoid slightly to the left. Veress needle inserted. Drop test performed. Pneumoperitoneum was created to a volume of 2 L of carbon dioxide. Utilizing a bladeless 12-mm trocar and 0-degree laparoscope, direct visual entry into the abdominal cavity was performed. Pneumoperitoneum was created to a pressure of 15 mmHg, and the patient was placed in steep reverse Trendelenburg position. Tory liver retractor inserted. Left lobe of the liver retracted superiorly. The pylorus was identified. A 12-mm port was placed on the right beneath it and two 12s placed left subcostal. The omentum was taken off the greater curvature 5 cm from pylorus utilizing a LigaSure. Short gastrics divided with LigaSure and left crura defined with the LigaSure. A 38-Tajik bougie inserted directed into the antrum. The linear 60-mm green load stapler used to divide the antrum to the bougie, gold load along the bougie, and a series of blue through the angle of His. Intraoperative endoscopy was performed. The video endoscope inserted under direct vision, advanced into the sleeve, staple line inspected. There was no bleeding. Staple line then tested by inflating the new stomach with pressurized air under water. There was no air leak. Stomach decompressed. Scope removed. The remnants of the stomach removed from the abdomen through the left lateral port site. The fascia was closed with 0 Vicryl suture and GraNee needle. Trocars and retractors were removed. The skin closed with interrupted 4-0 Rapide. Dermabond applied. The patient tolerated the procedure well, transferred to Recovery in good condition. Sponge and needle count verified correct x2. Job ID: [id number]
[2018-10-02] MEDS ORDERED: diphenhydrAMINE 50 MG/ML VIAL IM PRN (11:43)
[2018-10-02] MEDS ORDERED: diphenhydrAMINE 25 MG CAP PO PRN (11:43)
[2018-10-02] MEDS ORDERED: Naloxone HCl 0.4 mg/ml Vial IV PRN (11:43)
[2018-10-02] MEDS ORDERED: fentaNYL Citrate/PF 2,000 MCG in Sodium Chloride 0.9% 60 ML IV PRN (11:43)
[2018-10-02] MEDS ORDERED: Zolpidem Tartrate 5 MG TAB PO PRN (11:43)
[2018-10-02] MEDS ORDERED: Communication Order-Pharmacy FS SCH (11:45)
[2018-10-02] MEDS: Ketorolac Tromethamine 30 MG/ML VIAL IVP SCH ×4 (12:00→20:52)
[2018-10-02] MEDS ORDERED: D5 1/2 NS w/20 mEq KCL 1,000 ML ONE (12:02)
[2018-10-02] MEDS: D5 1/2 NS w/20 mEq KCL 1,000 ML IV SCH ×2 (13:15→20:59)
[2018-10-02] MEDS ORDERED: Dexamethasone 20 MG/5 ML VIAL ONE (20:45)
[2018-10-02] MEDS ORDERED: Lidocaine 1% PF 5 ML VIAL ONE (20:45)
[2018-10-02] MEDS ORDERED: PHENYLEPHRINE-NS 100 MCG/ML 10 ML SYRINGE ONE (20:45)
[2018-10-02] MEDS ORDERED: Succinylcholine Chloride 20 MG/ML 10 ml SYRINGE FS ONE (20:45)
[2018-10-02] MEDS ORDERED: Ondansetron PF 4 MG/2 ML Vial ONE (20:45)
[2018-10-02] MEDS ORDERED: ePHEDrine/0.9% NaCl/PF SYRINGE 50 mg/10 ml ONE (20:45)
[2018-10-02] MEDS ORDERED: Glycopyrrolate 0.2 MG/ML 5 ML SYRINGE ONE (20:45)
[2018-10-02] MEDS ORDERED: PROPOFOL 200 MG/20 ML VIAL ONE (20:45)
[2018-10-03] MEDS: Ketorolac Tromethamine 30 MG/ML VIAL IVP SCH ×3 (03:18→16:09)
[2018-10-03] MEDS: D5 1/2 NS w/20 mEq KCL 1,000 ML IV SCH ×2 (03:22→12:16)
[2018-10-03 06:36] LABS: #Lymphocytes 1.2 thou/uL (1.20-3.40); #Monocytes 0.6 thou/uL (0.11-0.59); #Neutrophils 4.4 thou/uL (1.40-6.50); %Basophils 0.1 % (0.0-1.0); %Eosinophils 0.3 % (0.0-10.0); %Lymphocytes 18.8 % (21.0-51.0); %Monocytes 9.5 % (0.0-10.0); %Neutrophils 71.3 % (42.0-75.0); Hemoglobin 11.5 g/dL (12.0-16.0); Mean Corpuscular HGB CONC 34.1 g/dL (32.0-36.0); Mean Corpuscular Hemoglobin 31.5 pg (27.0-31.0); Mean Corpuscular Volume 92.4 fL (78.0-98.0); Mean Platelet Volume 8.1 fL (7.4-10.4); Platelet Count 210 thou/uL (130-400); RBC Distribution Width 12.5 % (11.5-14.5); Red Blood Cell (RBC) Count 3.64 mill/uL (4.20-5.40); White Blood Cell (WBC) Count 6.1 thou/uL (4.8-10.8)
[2018-10-03 06:53] LABS: Anion Gap 13 mmol/L (10-20); BUN (Urea Nitrogen) 17 mg/dL (7.0-18.7); Calc. Creatinine Clearance 178 mL/min (70-130); Calcium 8.8 mg/dL (7.8-10.44); Carbon Dioxide 24 mmol/L (22-29); Chloride 103 mmol/L (98-107); Estimated GFR-MDRD 63; Glucose 112 mg/dL (70-105); Potassium 3.6 mmol/L (3.5-5.1); Sodium 136 mmol/L (136-145)
--- NOTE | 2018-10-03 08:36 | RAD ---
LIMITED UPPER GI: DATE: 10/03/2018. HISTORY: Post gastric sleeve procedure. FLUOROSCOPY: Total fluoroscopy time is 0.8 minutes with a total dose of 130.64 mGy cm2. FINDINGS: Electric [employer]sembler images demonstrate multiple posterior rods and pedicular screws transfixing the thoracolumbar s pine. Approximately 15 mL of Gastrografin was administered p.o. Contrast traverses the GE junction freely and without holdup. Contrast is seen extending into the small bowel. No extravasation of contrast i s seen to suggest a leak. IMPRESSION: Postsurgical changes related to gastric sleeve procedure. There is no extravasation of contrast seen to suggest a leak. Contrast extends into the small bowel. POS: [facility]
[2018-10-03] MEDS ORDERED: Pantoprazole 40 MG VIAL IVP SCH (09:00)
[2018-10-03] MEDS ORDERED: Enoxaparin Sodium 40 MG/0.4 ML SYRINGE SC SCH (09:00)
[2018-10-03] MEDS: Hydrocodone-Acetamin 15 ML UDCUP PO PRN ×2 (10:02→16:15)
[2018-10-03 15:54] VITALS: BP 131/80; TEMP 98.1
[2018-10-03] MEDS ORDERED: GASTROGRAFIN 30 ML BOT ONE (16:58)
--- NOTE | 2018-10-04 07:45 | DIS ---
DATE OF ADMISSION: 10/02/2018 DATE OF DISCHARGE: 10/03/2018 DISCHARGE DIAGNOSIS: Morbid obesity. PROCEDURES DURING ADMISSION: Laparoscopic sleeve gastrectomy, postoperative Gastrografin swallow. HOSPITAL COURSE: The patient was admitted, taken to the operating room, where she underwent sleeve gastrectomy. She had an intraoperative esophagogastroscopy, postoperative Gastrografin swallow. She is doing well. She is tolerating liquids. She is still having some pain. She is being discharged home in good condition on hydrocodone and Zofran. She will follow up with me in 2 weeks. Job ID: [id number]
== END 2018-10-03 17:27 | disposition home or self-care (01) | DRG 621 ==
LOC: SURG A 10-02 07:32
PROVIDERS: ADMIT Surgery; ATTEND Surgery
PROC: 0DB64Z3 Excision of Stomach, Percutaneous Endoscopic Approach, Vertical (ICD-10-PCS; principal; 2018-10-02)
PROC: 0DJ68ZZ Inspection of Stomach, Via Natural or Artificial Opening Endoscopic (ICD-10-PCS; 2018-10-02)
DX: E66.01 Morbid (severe) obesity due to excess calories (principal); Z68.43 Body mass index [BMI] 50.0-59.9, adult; Z90.49 Acquired absence of other specified parts of digestive tract; Z98.1 Arthrodesis status
CPT/HCPCS: 36415; 36416; 74241; 80048; 85025; 88307; 88312; C9113; J1100; J1644; J1650; J1885; J1956; J2001; J2250; J2405; J2550; J2704; J3010; J7050

== ENCOUNTER 2018-10-07 11:47 | Emergency (ER) | payer OTHER ==
--- NOTE | 2018-10-07 13:29 | RAD ---
PA AND LATERAL CHEST: Date: 10/07/18 INDICATION: History of cough and hypertension. COMPARISON: Prior exam dated 09/26/18. FINDINGS: There is prominent thoracolumbar spinal instrumentation. Lungs are clear. Cardiomediastinal silhouett e is within normal limits. No acute osseous abnormality is evident. IMPRESSION: No acute cardiopulmonary abnormality. POS: [facility]
== END 2018-10-07 13:32 | disposition home or self-care (01) ==
LOC: ERS 11:47
DX: I10 Essential (primary) hypertension (principal); R05 Cough; E11.9 Type 2 diabetes mellitus without complications; E78.5 Hyperlipidemia, unspecified; M10.9 Gout, unspecified
CPT/HCPCS: 71046

== ENCOUNTER 2018-11-11 09:47 | Emergency (ER) | payer OTHER ==
[2018-11-11 11:09] LABS: Bilirubin Small (Negative); Blood, Urine Negative (Negative); Glucose, Urine (Dipstick) Negative (Negative); Leukocyte Negative (Negative); Nitrite Negative (Negative); Protein, Urine (Dipstick) Negative (Neg-Trace); Specific Gravity, Urine 1.025 (1.005-1.030)
[2018-11-11 11:14] LABS: Clarity Clear (Clear)
[2018-11-11] MEDS ORDERED: Ketorolac Tromethamine 30 MG/ML VIAL ONE (13:16)
== END 2018-11-11 13:26 | disposition home or self-care (01) ==
LOC: ERS 09:47
DX: M54.5 Low back pain (principal); I10 Essential (primary) hypertension; E11.9 Type 2 diabetes mellitus without complications; E78.5 Hyperlipidemia, unspecified; M10.9 Gout, unspecified
CPT/HCPCS: 81003; 87086; 96372; J1885

== ENCOUNTER 2018-11-26 10:20 | Outpatient (CLI) | payer OTHER ==
--- NOTE | 2018-11-26 11:01 | RAD ---
RIGHT FOOT RADIOGRAPHS THREE VIEWS: Date: 11-26-18 Provided Clinical History: Right hell pain without injury. Comparison: 01-24-17 FINDINGS: There is no evidence for fracture or other acute osseous abnormality. Alignment appears anatomic. Kamini nt spaces appear preserved. Conspicuous plantar calcaneal enthesophyte formation is noted which appea rs more prominent than on the prior study. Posterior calcaneal enthesophyte is also noted. IMPRESSION: 1. No evidence for an acute osseous abnormality or significant arthropathy. 2. Plantar calcaneal enthesophyte formation which can be seen with plantar fascitis. POS: [facility]
== END 2018-11-26 10:21 | disposition home or self-care (01) ==
LOC: BICRAD 10:20
PROVIDERS: ATTEND Family Medicine
DX: M79.671 Pain in right foot (principal)

== ENCOUNTER 2019-07-24 10:26 | Outpatient (CLI) | payer OTHER ==
--- NOTE | 2019-07-24 11:26 | MMO ---
Bilateral MAMMO Bilat Screen DDI. CLINICAL HISTORY: Patient is 49 years old and is seen for screening. The patient has no family history of breast cancer. The patient has no personal history of cancer. VIEWS: The views performed were: bilateral craniocaudal and bilateral mediolateral oblique. FILMS COMPARED: The present examination has been compared to prior imaging studies performed at [facility] on 05/21/2018, and at [facility] on 08/26/2013, 11/29/2015 and 04/24/2017. This study has been interpreted with the assistance of computer-aided detection. MAMMOGRAM FINDINGS: There are scattered fibroglandular densities. There are stable benign appearing calcifications seen in both breasts. There are no suspicious masses, calcifications or areas of architectural distortion. There are no suspicious masses, suspicious calcifications, or new areas of architectural distortion. IMPRESSION: THERE IS NO MAMMOGRAPHIC EVIDENCE OF MALIGNANCY. A ROUTINE FOLLOW-UP MAMMOGRAM IN 1 YEAR IS RECOMMENDED. ACR BI-RADS Category 2 - Benign finding MAMMOGRAPHY NOTE: 1. A negative mammogram report should not delay a biopsy if a dominant of clinically suspicious mass is present. 2. Approximately 10% to 15% of breast cancers are not detected by mammography. 3. Adenosis and dense breasts may obscure an underlying neoplasm. Reported by: RAJAT ESPOSITO MD Electonically Signed: [id number]
== END 2019-07-24 10:27 | disposition home or self-care (01) ==
LOC: BICMAMMO 10:26
PROVIDERS: ATTEND Family Medicine
DX: Z12.31 Encounter for screening mammogram for malignant neoplasm of breast (principal)
CPT/HCPCS: 77067

== ENCOUNTER 2019-08-20 09:28 | Outpatient (CLI) | payer OTHER ==
--- NOTE | 2019-08-20 10:15 | RAD ---
XR Knee Lt 4 View STANDARD: 08/20/2019 12:00 AM CLINICAL INDICATION: Left knee pain COMPARISON: None. FINDINGS: Fracture:No fracture. Arthropathy:Moderate osteoarthritis preferentially involving the medial compartment Incidental findings:None of significance. IMPRESSION: 1. No acute osseous abnormality. 2. Moderate osteoarthritis
--- NOTE | 2019-08-20 10:16 | RAD ---
XR Shoulder Rt 3 View STANDARD: 08/20/2019 12:00 AM CLINICAL INDICATION: Pain COMPARISON: None. FINDINGS: Fracture:No fracture. Arthropathy:Mild osteoarthritis of right AC joint Incidental findings:Partially imaged spinal hardware IMPRESSION: 1. No acute osseous abnormality.
--- NOTE | 2019-08-20 10:17 | RAD ---
XR Knee Rt 4 View STANDARD: 08/20/2019 12:00 AM CLINICAL INDICATION: Pain COMPARISON: None. FINDINGS: Fracture:No fracture. Arthropathy:Moderate osteoarthritis Incidental findings:None of significance. IMPRESSION: 1. No acute osseous abnormality. 2. Moderate osteoarthritis.
== END 2019-08-20 09:29 | disposition home or self-care (01) ==
LOC: BICRAD 09:28
PROVIDERS: ATTEND Family Medicine
DX: M25.561 Pain in right knee (principal); M25.562 Pain in left knee; M25.511 Pain in right shoulder; M17.0 Bilateral primary osteoarthritis of knee

== ENCOUNTER 2019-12-15 16:15 | Inpatient (IN) | payer OTHER ==
[~2019-12-15 16:15] MED LIST: Iopamidol 370 76% 100 ML VIAL ONE
[2019-12-15 16:47] LABS: #Lymphocytes 1.1 thou/uL (1.20-3.40); #Monocytes 0.6 thou/uL (0.11-0.59); #Neutrophils 7.5 thou/uL (1.40-6.50); %Basophils 0.4 % (0.0-1.0); %Eosinophils 0.1 % (0.0-10.0); %Lymphocytes 11.8 % (21.0-51.0); %Monocytes 6.8 % (0.0-10.0); %Neutrophils 80.9 % (42.0-75.0); Hemoglobin 13.7 g/dL (12.0-16.0); Mean Corpuscular HGB CONC 34.3 g/dL (32.0-36.0); Mean Corpuscular Hemoglobin 32.2 pg (27.0-31.0); Mean Corpuscular Volume 93.8 fL (78.0-98.0); Mean Platelet Volume 8.6 fL (7.4-10.4); Platelet Count 175 thou/uL (130-400); RBC Distribution Width 12.4 % (11.5-14.5); Red Blood Cell (RBC) Count 4.25 mill/uL (4.20-5.40); White Blood Cell (WBC) Count 9.3 thou/uL (4.8-10.8)
[2019-12-15 17:15] LABS: ALT (SGPT) 108 U/L (8-55); AST (SGOT) 164 U/L (5-34); Albumin 4.4 g/dL (3.5-5.0); Alkaline Phosphatase 91 U/L (40-110); Anion Gap 14 mmol/L (10-20); BUN (Urea Nitrogen) 13 mg/dL (7.0-18.7); Calc. Creatinine Clearance 0 mL/min (70-130); Calcium 9.5 mg/dL (7.8-10.44); Carbon Dioxide 22 mmol/L (22-29); Chloride 105 mmol/L (98-107); Estimated GFR-MDRD 71; Globulin 2.8 g/dL (2.4-3.5); Glucose 111 mg/dL (70-105); Potassium 3.5 mmol/L (3.5-5.1); Protein, Total 7.2 g/dL (6.0-8.3); Sodium 137 mmol/L (136-145)
--- NOTE | 2019-12-15 17:46 | RAD ---
Chest AP view INDICATION: Chest pain COMPARISON: November 11, 2016 FINDINGS: Lungs: The lungs are clear Cardiac silhouette: The cardiomediastinal silhouette appears within normal limits. Pulmonary vasculature: Normal Pleural spaces: No pleural effusion or pneumothorax is demonstrated. Upper abdomen: No abnormality seen. Osseous structures: No acute osseous abnormality. Additional findings: There is been interval placement of thoracic spinal instrumentation involving t he mid to lower thoracic spine IMPRESSION: No acute cardiopulmonary abnormality.
[2019-12-15 17:53] LABS: Bilirubin Negative (Negative); Blood, Urine Negative (Negative); Clarity Clear (Clear); Glucose, Urine (Dipstick) Normal (Negative); Leukocyte Negative Leu/uL (Negative); Nitrite Negative (Negative); Protein, Urine (Dipstick) 20 mg/dL (Neg-Trace); Urobilinogen 6 mg/dL (Less than 2)
[2019-12-15] MEDS ORDERED: Morphine 4 MG/ML VIAL ONE (18:14)
[2019-12-15] MEDS ORDERED: Ondansetron PF 4 MG/2 ML Vial ONE (18:14)
[2019-12-15] MEDS ORDERED: Morphine 2 MG/ML SYRINGE ONE (18:16)
--- NOTE | 2019-12-15 19:23 | CT ---
CT ABDOMEN AND PELVIS WITH IV CONTRAST: Indication: 49-year-old female with abdominal pain and near syncopal episodes. Comparison: Prior CT of the abdomen and pelvis, 01-05-17. FINDINGS: There is mild bibasilar atelectasis. There is post procedural change of a gastroplasty procedure which has developed in the interim. Gallb ladder is surgically absent. No focal hepatic lesion is evident. The spleen, pancreas, and adrenal glands are normal appearing. No focal renal lesion is noted. No hydronephrosis is noted. No free fluid or enlarged lymph nodes are evident. There is a mild amount of retained stool within the colon. The appendix is normal in the right lower quadrant. No free fluid is evident. The bladder, rectum, and perirectal soft tissues are unremarkable appearing . The bladder is partially decompressed. There has been interval instrumentation of the thoracolumbar spine with ankylosis of T10-[address] of a prior discitis/osteomyelitis. IMPRESSION: 1. No definite acute abnormality seen. 2. Post-operative changes of above. POS: [facility]
[2019-12-15] MEDS ORDERED: Acetaminophen 500 MG TAB ONE (21:13)
[2019-12-15] MEDS ORDERED: Lorazepam 2 MG/ML VIAL ONE (21:16)
--- NOTE | 2019-12-15 23:40 | MRI ---
MRI LUMBAR SPINE WITHOUT CONTRAST: Indications: Back pain, fall. FINDINGS: Visualized lower thoracic and lumbar vertebrae maintain height and alignment. Pedicle screws are seen in the lower thoracic vertebrae and L1 vertebrae. There is no evidence of edema. No evidence of acut e fracture or compression. L1-2: No central canal or foraminal stenosis. L2-3: Mild disc bulge and facet hypertrophy and mild central canal stenosis. L3-4: Broad based disc bulge. Facet hypertrophy. Mild to moderate central canal stenosis. L4-5: Diffuse disc bulge, prominent facet hypertrophy, moderate to severe central canal stenosis. L5-S1: Broad based disc bulge with facet arthrosis. Mild central canal stenosis. IMPRESSION: No evidence of acute edema or compression. Central canal stenosis at several levels as described. POS: [facility]
--- NOTE | 2019-12-15 23:43 | MRI ---
MRI THORACIC SPINE: History: Back pain, fall. FINDINGS: Post op findings are noted with pedicle screws in the mid and lower thoracic vertebrae and L1 vertebr ae. Vertebral bodies maintain height and alignment. No edema or compression. No evidence of acute fracture or injury. There is evidence of fusion at T10 and T11. Metallic artifact degrades evaluation of the mid and lower thoracic spinal canal. Broad based disc bulge at T3-4 effaces the anterior subarachnoid space and abuts the anterior cord. There is a disc protrusion at T6-7 impinging on and flattening the anterior cord. No other significant disc bulge or protrusion identified. No other evidence of central canal stenosis . IMPRESSION: 1. Post-operative changes with pedicle screws in the thoracic spine beginning at T8 and extending thr ough L1. Fusion at T10-11. 2. No edema or evidence of acute compression or fracture. 3. Disc protrusion at T6-7 impinges on the cord. 4. Broad based bulge at T3-4 abuts the anterior cord. POS: [facility]
[2019-12-15] MEDS ORDERED: Cefepime 2 GM in Sodium Chloride 0.9% 100 ML IVPB SCH (23:45)
[2019-12-15] MEDS ORDERED: Cefepime 2 GM VIAL ONE (23:47)
[2019-12-16] MEDS ORDERED: Vancomycin 1 GM/200 ML BAG ONE (01:07)
[2019-12-16 03:42] VITALS: BMI 39.4
[2019-12-16] MEDS ORDERED: Lactated Ringer's 1,000 ML IV SCH (04:15)
[2019-12-16] MEDS ORDERED: HYDROcodone/Acetaminophen 5/325 mg Tablet PO PRN ×2 (04:17)
[2019-12-16] MEDS ORDERED: Vancomycin 1 GM in Premix Bag 1 BAG IVPB SCH ×3 (09:00→17:00)
[2019-12-16] MEDS ORDERED: Calcium Carbonate 500 MG ChewTAB PO PRN (09:27)
[2019-12-16] MEDS ORDERED: Acetaminophen 325 MG TAB PO PRN (09:27)
[2019-12-16] MEDS ORDERED: Ondansetron PF 4 MG/2 ML Vial IVP PRN (09:27)
[2019-12-16] MEDS ORDERED: Ondansetron ODT 4 MG TAB PO PRN (09:27)
[2019-12-16] MEDS ORDERED: Topiramate 25 MG TAB PO SCH ×2 (09:30→21:00)
[2019-12-16] MEDS ORDERED: HYDROcodone/Acetaminophen 10/325 mg Tablet PO PRN (09:37)
[2019-12-16] MEDS ORDERED: Cefepime 2 GM in Sodium Chloride 0.9% 100 ML IVPB SCH ×2 (09:45→12:00)
[2019-12-16 10:08] LABS: ALT (SGPT) 129 U/L (8-55); AST (SGOT) 149 U/L (5-34); Albumin 3.4 g/dL (3.5-5.0); Alkaline Phosphatase 73 U/L (40-110); Anion Gap 9 mmol/L (10-20); BUN (Urea Nitrogen) 12 mg/dL (7.0-18.7); Bilirubin, Total 0.8 mg/dL (0.2-1.2); CRP (Inflammatory) 10.3 mg/dL (= or < 0.5); Calc. Creatinine Clearance 176 mL/min (70-130); Calcium 8.2 mg/dL (7.8-10.44); Carbon Dioxide 23 mmol/L (22-29); Chloride 108 mmol/L (98-107); Estimated GFR-MDRD 90; Globulin 2.3 g/dL (2.4-3.5); Glucose 91 mg/dL (70-105); Potassium 3.2 mmol/L (3.5-5.1); Protein, Total 5.7 g/dL (6.0-8.3); Sodium 137 mmol/L (136-145)
[2019-12-16] MEDS ORDERED: Magnesium 2 GM/50 ML 2 GM in Premix Bag 1 BAG IVPB SCH (11:30)
[2019-12-16 11:46] LABS: Band 12 % (5-11); Hemoglobin 11.7 g/dL (12.0-16.0); Lymphocytes 12 % (21-51); MDiff Complete? YES; Mean Corpuscular HGB CONC 33.8 g/dL (32.0-36.0); Mean Corpuscular Hemoglobin 32.1 pg (27.0-31.0); Mean Corpuscular Volume 94.8 fL (78.0-98.0); Mean Platelet Volume 7.8 fL (7.4-10.4); Metamyelocyte 3 % (0-0); Monocytes 7 % (0-10); Neutrophil 60 % (42-75); Platelet Count 110 thou/uL (130-400); Platelet Morphology Comment Appears Decreased; Polychromasia SLIGHT = 2-3 cells (100X) (0-2/hpf); RBC Distribution Width 12.4 % (11.5-14.5); Reactive Lymphocytes 5 % (0-10); Red Blood Cell (RBC) Count 3.65 mill/uL (4.20-5.40); White Blood Cell (WBC) Count 2.9 thou/uL (4.8-10.8)
[2019-12-16] MEDS: traMADol HCl 50 MG TAB PO PRN (11:53)
[2019-12-16] MEDS: Cefepime 2 GM in Sodium Chloride 0.9% 100 ML IVPB SCH (11:54)
[2019-12-16] MEDS: Lactated Ringer's 1,000 ML IV SCH ×2 (12:01→16:16)
--- NOTE | 2019-12-16 12:16 | HP ---
PRIMARY CARE: [facility], Dr. Leoncio Barroso. CHIEF COMPLAINT: Generalized weakness. HISTORY OF PRESENT ILLNESS: The patient is a 49-year-old female with hypertension and spinal epidural abscess three years ago presented to the emergency room with above complaints. Over the last few weeks, the patient has upper respiratory tract symptoms. She has right-sided facial tenderness that is progressively worsening. She also had cough productive of thick whitish phlegm. Her symptoms progressively got worse over the last 2 to 3 days. She was evaluated by her primary care physician 3 to 4 weeks ago and was started on antihistamine without much relief. She denies any shortness of breath, wheezing, or palpitations. No fever reported. She felt generally weak and fatigued. She had no energy. The patient's daughter dropped the patient to the emergency room and left. The patient had a near syncopal episode while in the waiting room while she was walking towards the desk. She denies any loss of consciousness or seizure-like activity. No confusion reported. In the emergency room, her maximum temperature was 101.8 with lowest blood pressure of 89/53, respirations of 16, pulse rate of 70 and O2 saturation of 95% on room air. She received vancomycin, cefepime with morphine, Zofran, lorazepam, and IV fluids in the emergency room. The patient denies any sick contacts. Except for one family member who had recent upper respiratory tract infection. She thinks that family member acquired illness from her. The patient will require 2 to 3 days for stabilization. PAST MEDICAL HISTORY: 1. Diskitis with epidural abscess in December of 2016. 2. Morbid obesity status post gastric sleeve. 3. Hypertension. 4. Diabetes mellitus, type 2. 5. Dyslipidemia. 6. History of recurrent urinary tract infections. 7. History of multidrug-resistant E coli UTI in 2017. 8. Chronic cholecystitis status post cholecystectomy. 9. Gout. 10. Chronic pain syndrome. 11. History of left breast mass. 12. Anxiety. 13. Obstructive sleep apnea, on CPAP. PAST SURGICAL HISTORY: 1. Cholecystectomy. 2. Tonsillectomy. 3. Sinus surgery. 4. Carpal tunnel surgery. 5. Decompressive laminectomy in 2017 for osteomyelitis, diskitis and epidural abscess. SOCIAL HISTORY: The patient currently lives at home with her family. She denies current use of smoking, alcohol, or drug use. FAMILY HISTORY: Positive for diabetes and hypertension in several family members. ALLERGIES: THE PATIENT IS ALLERGIC TO LATEX, PENICILLIN, AND SULFA ANTIBIOTICS. CURRENT HOME MEDICATIONS: 1. Allopurinol 300 mg daily. 2. Lipitor 40 mg at bedtime. 3. Cetirizine 10 mg at bedtime. 4. Diclofenac gel as needed. 5. Providence as needed. 6. Lisinopril 20 mg b.i.d. 7. Topamax 25 mg b.i.d. 8. Tramadol 50 mg daily. REVIEW OF SYSTEMS: All other review of systems reviewed and were found negative. PHYSICAL EXAMINATION: VITAL SIGNS: As discussed above. GENERAL: A 49-year-old female, ill-appearing, in no apparent distress. HEENT: Head, atraumatic and normocephalic. Sclerae anicteric. Moist mucous membranes. No oral lesion. NECK: Supple. No JVD. No carotid bruit. LUNGS: Showed scattered rhonchi without significant rales. No accessory muscle use. No wheezing. HEART: S1, S2 present. Regular. Bradycardic. No rubs or gallops. ABDOMEN: Soft, nontender. Bowel sounds present. No rebound or guarding. No costovertebral angle tenderness. EXTREMITIES: No edema or calf tenderness. NEUROLOGIC: Grossly nonfocal. Moves all 4 extremities. Power was 5/5 in all extremities. PSYCHIATRIC: Alert, awake, oriented x3. Normal affect. SKIN: Warm and dry. LYMPH NODES: No palpable lymph nodes in the neck. PERIPHERAL VASCULAR: Radial pulses palpable bilaterally. MUSCULOSKELETAL: No joint swelling or tenderness. DIAGNOSTIC TESTS: 1. EKG by my review showed sinus tachycardia with frequent premature ventricular complexes. 2. CBC showed WBC of 9.3 with hemoglobin 13.7, hematocrit 39.8, platelet of 175. 3. Chemistry showed sodium 137, potassium 3.2, chloride 108, bicarbonate 23, BUN of 12, creatinine 0.69, glucose of 91. 4. AST of 164, ALT of 108. 5. CRP of 10.3. TSH is pending. 6. Stool studies were negative for C diff, lactoferrin or shiga toxin. 7. Influenza screen negative. 8. Blood cultures are pending at this time. 9. Chest x-ray by my review was negative for infiltrate. 10. CT scan of the abdomen and pelvis with IV contrast was negative for acute findings. 11. MRI of the thoracic and lumbar spine was negative for acute infectious finding. IMPRESSION: 1. Severe sepsis of unclear etiology. 2. Suspected acute sinusitis. 3. Hypokalemia. 4. Chronic kidney disease, stage 2. 5. Abnormal LFTs of unclear etiology. 6. Obesity with a BMI of 39.4. 7. Obstructive sleep apnea, on CPAP. 8. Near syncopal episode in the emergency room waiting area probably due to generalized weakness and hypotension. 9. History of epidural abscess/diskitis in 2017. 10. History of gastric sleeve. 11. Diabetes mellitus, type 2. 12. Hypertension. 13. Gout. 14. Penicillin and sulfa allergy. PLAN: 1. The patient will be monitored on the medical floor. We will continue vancomycin and cefepime, which were started in the emergency room. We will replace potassium. We will hold lisinopril for now. We will check respiratory viral panel and will resume selected home medications. Consult Infectious Disease. Monitor vancomycin level. 2. The patient understands the above plan of care. Job ID: [id number]
[2019-12-16] MEDS: Diclofenac 1% 100 GM GEL TP PRN ×2 (12:56→21:56)
--- NOTE | 2019-12-16 16:15 | CON ---
DATE OF CONSULTATION: 12/16/2019 CONSULT REASON: Fever, possible sepsis. HISTORY OF PRESENT ILLNESS: A 49-year-old, whom I had seen in 2017 when she presented with a history of type 2 diabetes, hypertension, obesity, and thoracic spine epidural abscess with osteomyelitis secondary to E. coli. The patient was treated with Rocephin, resolution of the process and she next had a sleeve gastrectomy done on October 02, [address] Muir. The path specimen showed no abnormalities noted. No H. pylori identified in the gastric specimen. The patient did relatively well, she lost about 100 pounds and states that she has been taking her vitamin supplements with excellent compliance. She has had problems with reflux. She coughs at night sometimes and has to take proton pump inhibitors on a regular basis. Over the past few weeks, has noticed worsening nasal obstipation with some cough and green brown nasal secretions. She was given antihistaminics , but no antimicrobials were provided. She continued to feel unwell, had some chills and then came to the emergency room and on arrival, she fainted and was brought diaphoretic to the ER examining areas. No headaches. No seizure activity. No diarrhea or constipation. No genitourinary symptoms. The patient has chronic back pain, not the same character that was present when she had an infection diagnosed in 2017. Also chronic knee pain from osteoarthritis. No skin disorder noted. No vomiting. PAST MEDICAL HISTORY: Type 2 diabetes, obesity, hyperlipidemia, thoracic spine E. coli, diskitis with osteomyelitis, epidural abscess, gout, recent sleeve gastrectomy, and sinus surgery. ALLERGIES: ADHESIVE TAPE, LATEX, PENICILLIN, AND SULFA DRUGS WITH RASH. SOCIAL HISTORY: Never smoker. FAMILY HISTORY: Coronary artery disease, type 2 diabetes, and hypertension. CURRENT MEDICATIONS: 1. [place]field. 2. Zyloprim. 3. Cefepime. 4. Voltaren. 5. Pepcid. 6. Claritin. 7. Zofran. 8. Potassium. 9. Senokot. 10. Ultram. 11. Vancomycin. PHYSICAL EXAMINATION: VITAL SIGNS: T-max 98.9, blood pressure 120/80, pulse 63, respirations 18, and O2 saturation 100. SKIN: Peripheral IV access. The patient is voiding in the toilet. No lymphadenopathy. HEENT: Ocular movements conjugate. Sclerae white. Pupils are equal. Oral cavity normal. NECK: Supple. No jugular vein distention. LUNGS: Symmetric clear breath sounds. HEART: S1 and S2. Regular rate. No S3 or S4. ABDOMEN: Soft, not distended or tender. No ascites. No bladder distention. EXTREMITIES: No joint inflammatory activity. Osteoarthritis in knees. Pulses 1+ in dorsalis pedis. Plantar responses are flexor. No clonus. NEUROLOGIC: Cognitive function appears to be intact. Speech normal. Recollection normal. LABORATORY DATA: On arrival; sodium 137, creatinine 0.85, AST 164, ALT 108, albumin 4.4, alkaline phosphatase 91, bilirubin 1.0, and the AST is down to 149, ALT up to 129, alkaline phosphatase is normal. CRP 10.3. Albumin 3.4. Urinalysis was essentially normal except for increased urobilinogen. Respiratory virus PCR was negative. Blood culture is pending. C. difficile negative. Abdomen and pelvis CT scan, surgically absent gallbladder. Mild bibasilar atelectasis. Spleen, pancreas, and adrenal glands normal. No free fluid was evident. Instrumentation of the T-spine. Repeat MRI of the T-spine and lumbar spine did not show any inflammatory changes. ASSESSMENT: 1. Type 2 diabetes. 2. Obesity. 3. Sleeve gastrectomy in the beginning at 2019. 4. Persistent gastroesophageal reflux disease symptoms after sleeve gastrectomy with coughing spells at night. 5. Mild bandemia. DISCUSSION: The differential diagnosis includes nighttime aspiration with mild pneumonitis, which is fairly common in the patients with sleeve gastrectomy versus transient bacteremia or a viral illness. A respiratory virus was not identified in the testing. This day and age, COVID 19 is always a concern, although in her case, she does not have any factors that place her at risk, although we may be missing a lot of cases, but still not high in the differential diagnosis. The final possibility is cofactor deficiency, can sometimes be associated with chills and fever, particularly B12 and thiamine, I would encourage measuring those and see if there is deficiency to be corrected. Job ID: [id number] [facility]
[2019-12-16] MEDS: Potassium Chloride 10 MEQ TAB PO SCH (16:19)
[2019-12-16] MEDS: Famotidine 20 MG TAB PO SCH (20:20)
[2019-12-16] MEDS: Loratadine 10 MG TAB PO SCH (20:20)
[2019-12-16] MEDS: Topiramate 25 MG TAB PO SCH (20:20)
[2019-12-16] MEDS: Senokot S 8.6-50 MG TAB PO SCH (20:21)
[2019-12-16] MEDS ORDERED: Enoxaparin Sodium 40 MG/0.4 ML SYRINGE SC SCH (21:00)
[2019-12-16] MEDS ORDERED: Lisinopril 20 MG TAB PO SCH (21:00)
[2019-12-16] MEDS: HYDROcodone/Acetaminophen 10/325 mg Tablet PO PRN (21:55)
[2019-12-17] MEDS: Cefepime 2 GM in Sodium Chloride 0.9% 100 ML IVPB SCH ×2 (01:53→11:36)
[2019-12-17 06:29] LABS: Hemoglobin 11.2 g/dL (12.0-16.0); Mean Corpuscular HGB CONC 35.3 g/dL (32.0-36.0); Mean Corpuscular Hemoglobin 33.3 pg (27.0-31.0); Mean Corpuscular Volume 94.2 fL (78.0-98.0); Mean Platelet Volume 8.2 fL (7.4-10.4); Platelet Count 111 thou/uL (130-400); RBC Distribution Width 12.3 % (11.5-14.5); Red Blood Cell (RBC) Count 3.35 mill/uL (4.20-5.40); White Blood Cell (WBC) Count 2.8 thou/uL (4.8-10.8)
[2019-12-17 06:43] LABS: ALT (SGPT) 86 U/L (8-55); AST (SGOT) 70 U/L (5-34); Albumin 3.1 g/dL (3.5-5.0); Alkaline Phosphatase 66 U/L (40-110); Anion Gap 8 mmol/L (10-20); BUN (Urea Nitrogen) 11 mg/dL (7.0-18.7); Bilirubin, Total 0.5 mg/dL (0.2-1.2); Calc. Creatinine Clearance 166 mL/min (70-130); Calcium 8.3 mg/dL (7.8-10.44); Carbon Dioxide 25 mmol/L (22-29); Chloride 110 mmol/L (98-107); Estimated GFR-MDRD 84; Globulin 2.3 g/dL (2.4-3.5); Glucose 82 mg/dL (70-105); Potassium 3.5 mmol/L (3.5-5.1); Protein, Total 5.4 g/dL (6.0-8.3); Sodium 139 mmol/L (136-145)
[2019-12-17] MEDS: Lactated Ringer's 1,000 ML IV SCH (08:30)
[2019-12-17] MEDS: traMADol HCl 50 MG TAB PO PRN (08:33)
[2019-12-17] MEDS: Saccharomyces boulardii 250 MG CAP PO SCH ×2 (08:34→08:35)
[2019-12-17] MEDS: Potassium Chloride 10 MEQ TAB PO SCH ×2 (08:35→17:31)
[2019-12-17] MEDS: Topiramate 25 MG TAB PO SCH ×2 (08:36→19:45)
[2019-12-17] MEDS: Famotidine 20 MG TAB PO SCH ×2 (08:36→19:44)
[2019-12-17] MEDS: Senokot S 8.6-50 MG TAB PO SCH ×2 (08:36→19:45)
[2019-12-17] MEDS: Allopurinol 300 MG TAB PO SCH (08:36)
[2019-12-17 09:40] LABS: Band 14 % (5-11); Eosinophils 5 % (0-10); Lymphocytes 37 % (21-51); MDiff Complete? YES; Monocytes 14 % (0-10); Neutrophil 30 % (42-75); Platelet Morphology Comment Appears Decreased; Polychromasia SLIGHT = 2-3 cells (100X) (0-2/hpf)
--- NOTE | 2019-12-17 19:07 | PRG ---
DATE OF SERVICE: 12/17/2019 SUBJECTIVE: Ms. Ibanez is feeling better than when she came in. The sputum has cleared a bit. She is not coughing as much. A little bit of low back pain, which is a chronic problem. OBJECTIVE: VITAL SIGNS: T-max 98.4, blood pressure 118/77, pulse 56, respirations 16, and O2 saturation 99. GENERAL: Awake, alert, and oriented. LUNGS: Symmetric air entry. HEART: S1 and S2, regular rate. ABDOMEN: Soft, not distended. LABORATORY STUDIES: Creatinine 0.73, AST 70, ALT 86. Bilirubin has remained normal throughout. CRP 10.3. Respiratory virus PCR negative. C difficile negative. Two sets of blood culture, no growth at 48 hours. Thoracic spine MRI, postop changes, no inflammatory changes noted. Chest x-ray with no acute cardiopulmonary abnormality noted. Abdomen and pelvis CT, mild amount of retained stool, bibasilar atelectases, postprocedural changing of gastroplasty procedure which has developed in the interim, absent gallbladder, no focal liver lesion. ASSESSMENT AND DISCUSSION: Type 2 diabetes, obesity, sleeve gastrectomy, persistent gastroesophageal reflux disease after sleeve gastrectomy with coughing spells at night, mild bandemia and transaminitis, which seem to be improving. Again, the possibility of nocturnal aspiration with pneumonitis, cofactor deficiency is considered possible. The transaminase elevation does not necessarily implicate the liver in the process since transaminases can be present in other types of tissues including lungs and kidneys. Urinalysis was normal, so that this seems to be the less likely scenario. The patient will be transitioned to oral antimicrobial therapy, either Omnicef or cefpodoxime or quinolone. Allopurinol can sometimes be associated with fever and hepatic inflammatory changes due to DRESS syndrome, although she does not have any evidence of eosinophilia. Job ID: [id number] [facility]
[2019-12-17] MEDS: Cefdinir 300 MG CAP PO SCH (19:44)
[2019-12-17] MEDS: Loratadine 10 MG TAB PO SCH (19:45)
[2019-12-17] MEDS: HYDROcodone/Acetaminophen 10/325 mg Tablet PO PRN (19:45)
--- NOTE | 2019-12-17 22:36 | PDOC.HOSPP ---
- Subjective Encounter Date: 12/17/19 Encounter Time: 12:30 Subjective: Patient seen and examined for Sepsis. Cough improving. Sputum getting clearer. No wheezing/SOB. No other complaints. No overnight events - Objective Vital Signs & Weight: Vital Signs (12 hours) Temp Pulse Resp BP Pulse Ox 12/17/19 20:00 98.4 F 58 L 16 149/94 H 100 12/17/19 16:00 98.4 F 56 L 16 118/77 99 12/17/19 12:57 98.2 F 65 18 110/75 98 Weight Weight 251 lb 8.759 oz I&O: 12/16/19 12/17/19 12/18/19 06:59 06:59 06:59 Intake Total 2814 Balance 2814 Result Diagrams: 12/17/19 05:55 12/17/19 05:55 Additional Labs: Microbiology 12/15/19 17:30 Urine clean catch Urine Culture - Final 12/15/19 17:33 Venous blood - Left Arm Blood Culture - Preliminary NO GROWTH AT 48 HOURS 12/15/19 17:26 Venous blood - Right Arm Blood Culture - Preliminary NO GROWTH AT 48 HOURS Laboratory Tests 12/17/19 05:55 Band Neuts % (Manual) 14 H Radiology Reviewed by me: Yes (CXR - no infiltrates) Hospitalist ROS - Review of Systems Respiratory: reports: cough. denies: dry, shortness of breath, hemoptysis, SOB with excertion, pleuritic pain, sputum, wheezing, other Cardiovascular: denies: chest pain, palpitations, orthopnea, paroxysmal noc. dyspnea, edema, light headedness, other Gastrointestinal: denies: nausea, vomiting, abdominal pain, diarrhea, constipation, melena, hematochezia, other - Medication Medications: Active Medications Generic Name Dose Route Start Last Admin Trade Name Freq PRN Reason Stop Dose Admin Hydrocodone Bitart/Acetaminophen 1 tab 12/16/19 11:31 12/17/19 19:45 [place] 10/325 PO 1 tab BID PRN Administration Pain 4-10 Allopurinol 300 mg 12/17/19 09:00 12/17/19 08:36 Zyloprim PO 300 mg DAILY JIGAR Administration Cefdinir 300 mg 12/17/19 21:00 12/17/19 19:44 Omnicef PO 300 mg BID JIGAR Administration Diclofenac Sodium 0 gm 12/16/19 12:15 12/16/19 21:56 Voltaren TP 1 applic QIDPRN PRN Administration Pain Famotidine 20 mg 12/16/19 21:00 12/17/19 19:44 Pepcid PO 20 mg BID JIGAR Administration Lactated Ringer's 1,000 mls @ 50 mls/hr 12/16/19 11:45 12/17/19 08:30 Lactated Ringer's IV 1,000 mls .Q20H JIGAR Administration Loratadine 10 mg 12/16/19 21:00 12/17/19 19:45 Claritin PO 10 mg HS JIGAR Administration Potassium Chloride 10 meq 12/16/19 17:00 12/17/19 17:31 Klor-Con 10 PO 10 meq BID-WM JIGAR Administration Saccharomyces Boulardii 250 mg 12/17/19 09:00 12/17/19 08:35 Florastor PO 250 mg DAILY JIGAR Administration Topiramate 25 mg 12/16/19 21:00 12/17/19 19:45 Topamax PO 25 mg BID JIGAR Administration Tramadol HCl 50 mg 12/16/19 09:37 12/17/19 08:33 Ultram PO 50 mg Q6H PRN Administration pain 4-10 - Exam General Appearance: NAD Neck: supple, no JVD Heart: no murmur, no gallops, no rubs, normal peripheral pulses Respiratory: no wheezes, no rales, normal chest expansion, rhonchi Gastrointestinal: soft, non-tender, non-distended, normal bowel sounds Extremities: no cyanosis, no clubbing, no edema Neurological: no new deficit Psychiatric: normal affect, A&O x 3 Hosp A/P - Plan PT/OT, DVT proph w/SCDs 1. Severe sepsis of unclear etiology. 2. Suspected acute sinusitis vs Aspiration pneumonitis 3. Hypokalemia. 4. Chronic kidney disease, stage 2. 5. Abnormal LFTs of unclear etiology. 6. Obesity with a BMI of 39.4. 7. Obstructive sleep apnea, on CPAP. 8. Near syncopal episode in the emergency room waiting area probably due to generalized weakness and hypotension. 9. History of epidural abscess/diskitis in 2017. 10. History of gastric sleeve. 11. Diabetes mellitus, type 2. 12. Hypertension. 13. Gout. 14. Penicillin and sulfa allergy. PLAN: Cont Empiric Atbx Cultures negative Stool w/u negative Echo - normal EF Cont other meds as above ID input appreciated Cont to monitor
[2019-12-18] MEDS: Lactated Ringer's 1,000 ML IV SCH (03:31)
[2019-12-18 06:00] LABS: #Basophils 0.1 thou/uL (0.0-0.2); #Eosinphils 0.3 thou/uL (0.0-0.7); #Lymphocytes 1.6 thou/uL (1.20-3.40); #Monocytes 0.5 thou/uL (0.11-0.59); #Neutrophils 1.3 thou/uL (1.40-6.50); %Basophils 1.4 % (0.0-1.0); %Eosinophils 8.1 % (0.0-10.0); %Lymphocytes 42.5 % (21.0-51.0); %Monocytes 13.4 % (0.0-10.0); %Neutrophils 34.6 % (42.0-75.0); Hemoglobin 11.2 g/dL (12.0-16.0); Mean Corpuscular HGB CONC 34.6 g/dL (32.0-36.0); Mean Corpuscular Hemoglobin 32.9 pg (27.0-31.0); Mean Platelet Volume 8.4 fL (7.4-10.4); Platelet Count 122 thou/uL (130-400); RBC Distribution Width 12.5 % (11.5-14.5); Red Blood Cell (RBC) Count 3.42 mill/uL (4.20-5.40); White Blood Cell (WBC) Count 3.8 thou/uL (4.8-10.8)
[2019-12-18 06:21] LABS: ALT (SGPT) 62 U/L (8-55); AST (SGOT) 39 U/L (5-34); Albumin 3.1 g/dL (3.5-5.0); Alkaline Phosphatase 66 U/L (40-110); Anion Gap 9 mmol/L (10-20); BUN (Urea Nitrogen) 10 mg/dL (7.0-18.7); Bilirubin, Total 0.4 mg/dL (0.2-1.2); Calc. Creatinine Clearance 189 mL/min (70-130); Calcium 8.3 mg/dL (7.8-10.44); Carbon Dioxide 26 mmol/L (22-29); Chloride 110 mmol/L (98-107); Estimated GFR-MDRD Greater than 90; Globulin 2.3 g/dL (2.4-3.5); Glucose 83 mg/dL (70-105); Potassium 3.6 mmol/L (3.5-5.1); Protein, Total 5.4 g/dL (6.0-8.3); Sodium 141 mmol/L (136-145)
[2019-12-18] MEDS: Famotidine 20 MG TAB PO SCH ×2 (08:49→20:03)
[2019-12-18] MEDS: Saccharomyces boulardii 250 MG CAP PO SCH (08:49)
[2019-12-18] MEDS: Cefdinir 300 MG CAP PO SCH ×2 (08:49→20:03)
[2019-12-18] MEDS: Topiramate 25 MG TAB PO SCH ×2 (08:49→20:03)
[2019-12-18] MEDS: Allopurinol 300 MG TAB PO SCH (08:49)
[2019-12-18] MEDS: Potassium Chloride 10 MEQ TAB PO SCH ×2 (08:50→15:26)
[2019-12-18] MEDS: traMADol HCl 50 MG TAB PO PRN (09:00)
--- NOTE | 2019-12-18 19:08 | PDOC.HOSPP ---
- Subjective Encounter Date: 12/18/19 Encounter Time: 17:45 Subjective: Patient seen and examined for Sepsis. No CP/SOB/fever or chills. No new complaints. No overnight events - Objective Vital Signs & Weight: Vital Signs (12 hours) Temp Pulse Resp BP Pulse Ox 12/18/19 17:18 98.5 F 52 L 18 153/92 H 99 12/18/19 12:48 98.5 F 57 L 20 144/90 H 98 12/18/19 08:33 97.7 F 53 L 20 165/95 H 100 12/18/19 08:00 100 Weight Weight 251 lb 8.759 oz I&O: 12/17/19 12/18/19 12/19/19 06:59 06:59 06:59 Intake Total 2814 Balance 2814 Result Diagrams: 12/18/19 05:42 12/18/19 05:42 Hospitalist ROS - Review of Systems Respiratory: denies: cough, dry, shortness of breath, hemoptysis, SOB with excertion, pleuritic pain, sputum, wheezing, other Cardiovascular: denies: chest pain, palpitations, orthopnea, paroxysmal noc. dyspnea, edema, light headedness, other Gastrointestinal: denies: nausea, vomiting, abdominal pain, diarrhea, constipation, melena, hematochezia, other - Medication Medications: Active Medications Generic Name Dose Route Start Last Admin Trade Name Freq PRN Reason Stop Dose Admin Acetaminophen 650 mg 12/16/19 09:27 12/18/19 15:25 Tylenol PO 650 mg Q4H PRN Administration Headache/Fever/Mild Pain (1-3) Hydrocodone Bitart/Acetaminophen 1 tab 12/16/19 11:31 12/17/19 19:45 [place] 10/325 PO 1 tab BID PRN Administration Pain 4-10 Allopurinol 300 mg 12/17/19 09:00 12/18/19 08:49 Zyloprim PO 300 mg DAILY JIGAR Administration Cefdinir 300 mg 12/17/19 21:00 12/18/19 08:49 Omnicef PO 300 mg BID JIGAR Administration Diclofenac Sodium 0 gm 12/16/19 12:15 12/16/19 21:56 Voltaren TP 1 applic QIDPRN PRN Administration Pain Famotidine 20 mg 12/16/19 21:00 12/18/19 08:49 Pepcid PO 20 mg BID JIGAR Administration Loratadine 10 mg 12/16/19 21:00 12/17/19 19:45 Claritin PO 10 mg HS JIGAR Administration Potassium Chloride 10 meq 12/16/19 17:00 12/18/19 15:26 Klor-Con 10 PO 10 meq BID-WM JIGAR Administration Saccharomyces Boulardii 250 mg 12/17/19 09:00 12/18/19 08:49 Florastor PO 250 mg DAILY JIGAR Administration Topiramate 25 mg 12/16/19 21:00 12/18/19 08:49 Topamax PO 25 mg BID JIGAR Administration Tramadol HCl 50 mg 12/16/19 09:37 12/18/19 09:00 Ultram PO 50 mg Q6H PRN Administration pain 4-10 - Exam General Appearance: NAD Neck: supple, no JVD Heart: RRR, no gallops Respiratory: no wheezes, no ronchi Gastrointestinal: non-tender, non-distended, normal bowel sounds Extremities: no cyanosis Neurological: no new deficit Hosp A/P - Plan DVT proph w/SCDs 1. Severe sepsis of unclear etiology. 2. Suspected acute sinusitis vs Aspiration pneumonitis 3. Hypokalemia. 4. Chronic kidney disease, stage 2. 5. Abnormal LFTs of unclear etiology. 6. Obesity with a BMI of 39.4. 7. Obstructive sleep apnea, on CPAP. 8. Near syncopal episode in the emergency room waiting area probably due to generalized weakness and hypotension. 9. History of epidural abscess/diskitis in 2017. 10. History of gastric sleeve. 11. Diabetes mellitus, type 2. 12. Hypertension. 13. Gout. 14. Penicillin and sulfa allergy. PLAN: Cont Omnicef Cultures negative so far DC IVF after this bag Cont other meds as above DC in AM if stable
[2019-12-18] MEDS: HYDROcodone/Acetaminophen 10/325 mg Tablet PO PRN (20:03)
[2019-12-18] MEDS: Loratadine 10 MG TAB PO SCH (20:03)
[2019-12-19] MEDS: Cefdinir 300 MG CAP PO SCH (08:04)
[2019-12-19] MEDS: Topiramate 25 MG TAB PO SCH (08:04)
[2019-12-19] MEDS: Potassium Chloride 10 MEQ TAB PO SCH (08:04)
[2019-12-19] MEDS: traMADol HCl 50 MG TAB PO PRN (08:04)
[2019-12-19] MEDS: Allopurinol 300 MG TAB PO SCH (08:05)
[2019-12-19] MEDS: Famotidine 20 MG TAB PO SCH (08:08)
[2019-12-19 08:26] VITALS: BP 163/98; TEMP 98.3
--- NOTE | 2019-12-19 15:34 | DIS ---
DATE OF ADMISSION: 12/16/2019 DATE OF DISCHARGE: 12/19/2019 DISCHARGE DISPOSITION: Home. FOLLOWUP: 1. Follow up with primary care physician at [facility] in 1 week. 2. Follow up with Infectious Disease, Dr. Garcia in 2 weeks. 3. The patient was seen and examined on the day of discharge. Denies any new complaints. Symptomatically feels much better. DISCHARGE MEDICATIONS: Omnicef 300 mg twice daily for 5 more days, all other home medications were left unchanged. INPATIENT ENDOSCOPY TECH: Infectious Disease, Dr. Garcia. DIAGNOSTIC TESTS: 1. Chest x-ray on admission was negative for infiltrate. 2. CT scan of the abdomen and pelvis was negative for acute findings. Lumbar spine MRI was negative for infectious etiology. There was central canal stenosis at several levels. 3. MRI of the thoracic spine showed postoperative changes from T8-L1. There was also broad-based bulge at T3-T4. 4. Echocardiogram showed left ventricular ejection fraction of 60% to 65% with trace mitral regurgitation. 5. Blood cultures remain negative. 6. Respiratory viral panel was negative. 7. Stool workup was negative. 8. Urine cultures negative. 9. AST on admission 164, at discharge was 39. 10. ALT on admission was 108, at discharge was 62. 11. CRP was 10.3. 12. Procalcitonin was 0.46. BRIEF HOSPITAL COURSE: The patient is a 49-year-old female with hypertension and spinal epidural abscess 3 years ago, presented to the emergency room with generalized weakness along with cough. She was monitored on the medical floor. She was started on vancomycin and cefepime. Blood cultures remained negative. The patient was evaluated by Infectious Disease, Dr. Garcia. According to Dr. Garcia, the patient probably has acute sinusitis versus nocturnal aspiration with pneumonitis. Allopurinol can sometimes be associated with fever and hepatic inflammatory changes due to DRESS syndrome. Symptomatically, the patient feels much better. She is requesting to be discharged. FINAL DIAGNOSES: 1. Severe sepsis of unclear etiology. Suspected nocturnal aspiration with aspiration pneumonitis. 2. Suspected acute sinusitis. 3. Hypokalemia. 4. Chronic kidney disease, stage 2. 5. Abnormal LFTs of unclear etiology probably due to sepsis, improving. 6. Obesity with a BMI of 39.4. 7. Obstructive sleep apnea, on CPAP. 8. Near syncope in the emergency room, probably secondary to generalized weakness and hypotension. 9. History of epidural abscess with diskitis in 2017. 10. Gastric sleeve. 11. Diabetes mellitus, type 2. 12. Gout. 13. Penicillin and sulfa allergy. The patient understands the above plan of care. Job ID: [id number]
--- NOTE | 2019-12-20 09:50 | EKG ---
Test Reason : Blood Pressure : / mmHG Vent. Rate : 107 BPM Atrial Rate : 107 BPM P-R Int : 142 ms QRS Dur : 088 ms QT Int : 368 ms P-R-T Axes : 028 -14 046 degrees QTc Int : 491 ms Sinus tachycardia with frequent Premature ventricular complexes Otherwise normal ECG Confirmed by CAMI AGGARWAL ([id number]), editorial manager SEGUNDO ADAME ([id number]) on 12/20/2019 9:50:17 AM Referred By: Confirmed By:CAMI AGGARWAL
== END 2019-12-19 12:52 | disposition home or self-care (01) | DRG 871 ==
LOC: ERS 16:15 → T4-B 12-16 02:14 → ERS 12-16 02:59 → T4-B 12-16 02:59
PROVIDERS: ADMIT Internal Medicine; ATTEND Internal Medicine
DX: A41.9 Sepsis, unspecified organism (principal); J69.0 Pneumonitis due to inhalation of food and vomit; R65.20 Severe sepsis without septic shock; J01.90 Acute sinusitis, unspecified; E87.6 Hypokalemia; I12.9 Hypertensive chronic kidney disease with stage 1 through stage 4 chronic kidney disease, or unspecified chronic kidney disease; N18.2 Chronic kidney disease, stage 2 (mild); Z68.39 Body mass index [BMI] 39.0-39.9, adult; R55 Syncope and collapse; I95.9 Hypotension, unspecified; M10.9 Gout, unspecified; E66.01 Morbid (severe) obesity due to excess calories; E78.5 Hyperlipidemia, unspecified; G89.4 Chronic pain syndrome; G47.33 Obstructive sleep apnea (adult) (pediatric); F41.9 Anxiety disorder, unspecified; E11.22 Type 2 diabetes mellitus with diabetic chronic kidney disease; K21.9 Gastro-esophageal reflux disease without esophagitis; Z99.81 Dependence on supplemental oxygen; Z88.1 Allergy status to other antibiotic agents; Z88.2 Allergy status to sulfonamides
CPT/HCPCS: 36415; 36416; 71045; 72146; 72148; 74177; 80053; 81003; 82607; 83605; 83630; 83690; 83735; 84145; 84425; 84484; 84590; 85025; 86140; 87040; 87086; 87324; 87427; 87449; 87633; 87804; 93005; 93306; 94760; 96361; 96365; 96367; 96375; J0692; J2060; J2270; J2405; J3370; J3475; J3490; Q9967

== ENCOUNTER 2020-08-04 10:14 | Emergency (ER) | payer OTHER | END 2020-08-04 12:20 | disposition home or self-care (01) | LOC: ERS 10:14 | DX: M54.2 Cervicalgia (principal); E78.5 Hyperlipidemia, unspecified; E78.00 Pure hypercholesterolemia, unspecified; I10 Essential (primary) hypertension; F41.9 Anxiety disorder, unspecified; Z79.899 Other long term (current) drug therapy | CPT/HCPCS: 99283 ==

== ENCOUNTER 2020-08-20 14:38 | Outpatient (CLI) | payer OTHER ==
--- NOTE | 2020-08-20 15:12 | MMO ---
Bilateral MAMMO Bilat Screen DDI. CLINICAL HISTORY: Patient is 50 years old and is seen for screening. The patient has no family history of breast cancer. The patient has no personal history of cancer. VIEWS: The views performed were: bilateral craniocaudal and bilateral mediolateral oblique. FILMS COMPARED: The present examination has been compared to prior imaging studies performed at [facility] on 05/21/2018, and at [facility] on 11/29/2015, 04/24/2017 and 07/24/2019. This study has been interpreted with the assistance of computer-aided detection. MAMMOGRAM FINDINGS: There are scattered fibroglandular densities. There are benign appearing calcifications seen in both breasts. There are no suspicious masses, suspicious calcifications, or new areas of architectural distortion. IMPRESSION: THERE IS NO MAMMOGRAPHIC EVIDENCE OF MALIGNANCY. A ROUTINE FOLLOW-UP MAMMOGRAM IN 1 YEAR IS RECOMMENDED. ACR BI-RADS Category 2 - Benign finding MAMMOGRAPHY NOTE: 1. A negative mammogram report should not delay a biopsy if a dominant of clinically suspicious mass is present. 2. Approximately 10% to 15% of breast cancers are not detected by mammography. 3. Adenosis and dense breasts may obscure an underlying neoplasm. Reported by: HEIDI BURDICK MD Electonically Signed: [id number]
== END 2020-08-20 14:39 | disposition home or self-care (01) ==
LOC: BICMAMMO 14:38
PROVIDERS: ATTEND Family Medicine
DX: Z12.31 Encounter for screening mammogram for malignant neoplasm of breast (principal)
CPT/HCPCS: 77067

== ENCOUNTER 2021-01-05 19:00 | Outpatient (CLI) | payer OTHER | END 2021-01-05 19:01 | disposition home or self-care (01) | LOC: SLEEPLAB 19:00 | PROVIDERS: ATTEND Family Medicine | DX: G47.33 Obstructive sleep apnea (adult) (pediatric) (principal); R53.83 Other fatigue; E66.9 Obesity, unspecified; R06.83 Snoring; I10 Essential (primary) hypertension; E11.9 Type 2 diabetes mellitus without complications; Z68.42 Body mass index [BMI] 45.0-49.9, adult | CPT/HCPCS: 95811 ==

== ENCOUNTER 2021-05-06 12:45 | Outpatient (CLI) | payer OTHER | END 2021-05-06 12:46 | disposition home or self-care (01) | LOC: BICRAD 12:45 | PROVIDERS: ATTEND Family Medicine | DX: M54.6 Pain in thoracic spine (principal) | CPT/HCPCS: 72072 ==

== ENCOUNTER 2021-08-23 09:04 | Outpatient (CLI) | payer OTHER | END 2021-08-23 09:05 | disposition home or self-care (01) | LOC: BICMAMMO 09:04 | PROVIDERS: ATTEND Family Medicine | DX: Z12.31 Encounter for screening mammogram for malignant neoplasm of breast (principal) | CPT/HCPCS: 77067 ==

== ENCOUNTER 2021-08-30 09:45 | Outpatient (CLI) | payer OTHER | END 2021-08-30 09:46 | disposition home or self-care (01) | LOC: BICRAD 09:45 | PROVIDERS: ATTEND Family Medicine | DX: M54.2 Cervicalgia (principal); M47.812 Spondylosis without myelopathy or radiculopathy, cervical region | CPT/HCPCS: 72040 ==

== ENCOUNTER 2021-10-17 12:19 | Outpatient (CLI) | payer OTHER | END 2021-10-17 12:20 | disposition home or self-care (01) | LOC: BICRAD 12:19 | PROVIDERS: ATTEND Family Medicine | DX: M54.41 Lumbago with sciatica, right side (principal); M25.561 Pain in right knee; M17.11 Unilateral primary osteoarthritis, right knee; M47.816 Spondylosis without myelopathy or radiculopathy, lumbar region; Z98.890 Other specified postprocedural states | CPT/HCPCS: 72100 ==

== ENCOUNTER 2021-10-27 12:21 | Outpatient (CLI) | payer OTHER | END 2021-10-27 12:22 | disposition home or self-care (01) | LOC: TBSIIMAG 12:21 | PROVIDERS: ATTEND Family Medicine | DX: S89.91XD Unspecified injury of right lower leg, subsequent encounter (principal); M23.331 Other meniscus derangements, other medial meniscus, right knee; M67.461 Ganglion, right knee; M71.38 Other bursal cyst, other site ==

== ENCOUNTER 2022-05-13 09:25 | Emergency (ER) | payer OTHER ==
[2022-05-13] MEDS ORDERED: Iopamidol-370 76% 500 ML 1 ML ONE (09:47)
[2022-05-13 10:05] LABS: #Eosinphils 0.3 thou/uL (0.0-0.7); #Lymphocytes 2.4 thou/uL (1.20-3.40); #Monocytes 0.6 thou/uL (0.11-0.59); #Neutrophils 5.2 thou/uL (1.40-6.50); %Basophils 0.3 % (0.0-1.0); %Eosinophils 3.7 % (0.0-10.0); %Lymphocytes 28.3 % (21.0-51.0); %Monocytes 6.5 % (0.0-10.0); %Neutrophils 61.1 % (42.0-75.0); Hemoglobin 12.5 g/dL (12.0-16.0); Mean Corpuscular Hemoglobin 32.6 pg (27.0-31.0); Mean Platelet Volume 7.9 fL (7.4-10.4); Platelet Count 196 thou/uL (130-400); RBC Distribution Width 12.5 % (11.5-14.5); Red Blood Cell (RBC) Count 3.83 mill/uL (4.20-5.40); White Blood Cell (WBC) Count 8.5 thou/uL (4.8-10.8)
[2022-05-13 10:18] LABS: ALT (SGPT) 13 U/L (8-55); AST (SGOT) 18 U/L (5-34); Albumin 4.2 g/dL (3.5-5.0); Alkaline Phosphatase 87 U/L (40-110); Anion Gap 13 mmol/L (10-20); BUN (Urea Nitrogen) 40 mg/dL (9.8-20.1); Bilirubin, Total 0.3 mg/dL (0.2-1.2); Calc. Creatinine Clearance 0 mL/min (70-130); Calcium 9.6 mg/dL (7.8-10.44); Carbon Dioxide 25 mmol/L (22-29); Chloride 106 mmol/L (98-107); Estimated GFR 85; Globulin 3.2 g/dL (2.4-3.5); Glucose 82 mg/dL (70-105); Potassium 4.2 mmol/L (3.5-5.1); Protein, Total 7.4 g/dL (6.0-8.3); Sodium 140 mmol/L (136-145)
[2022-05-13 10:53] LABS: Bacteria/HPF None Seen HPF (None Seen); Bilirubin Negative (Negative); Blood, Urine Negative (Negative); Clarity Clear (Clear); Glucose, Urine (Dipstick) Normal (Negative); Ketone, Urine Negative (Negative); Leukocyte 25 Leu/uL (Negative); Nitrite Negative (Negative); Protein, Urine (Dipstick) Negative (Neg-Trace); RBC/HPF 0-3 HPF (0-3); Specific Gravity, Urine 1.026 (1.002-1.036); Squamous Epithelial 0-3 HPF (0-3); Urobilinogen Normal mg/dL (Less than 2); WBC/HPF 0-3 HPF (0-3); pH, Urine 5.5 (5.0-9.0)
[2022-05-13 13:21] LABS: BHCG - Serum Negative (NEGATIVE); Pregs Control Background? CLEAR/WHITE (CLR/WHITE); Pregs Control Bar Appear? YES (CONTROL BAR)
== END 2022-05-13 13:15 | disposition home or self-care (01) ==
LOC: ERS 09:25
DX: K42.9 Umbilical hernia without obstruction or gangrene (principal); M10.9 Gout, unspecified; I10 Essential (primary) hypertension; E11.9 Type 2 diabetes mellitus without complications; E78.00 Pure hypercholesterolemia, unspecified; Z79.899 Other long term (current) drug therapy; Z79.82 Long term (current) use of aspirin
CPT/HCPCS: 36415; 74177; 80053; 81003; 81015; 83690; 84703; 85025; 93005; 94760; Q9967

== ENCOUNTER 2022-06-16 09:09 | Outpatient (CLI) | payer OTHER | END 2022-06-16 09:10 | disposition home or self-care (01) | LOC: TBSIIMAG 09:09 | PROVIDERS: ATTEND Family Medicine | DX: M50.322 Other cervical disc degeneration at C5-C6 level (principal); M47.812 Spondylosis without myelopathy or radiculopathy, cervical region; M47.813 Spondylosis without myelopathy or radiculopathy, cervicothoracic region; E04.1 Nontoxic single thyroid nodule; R29.898 Other symptoms and signs involving the musculoskeletal system | CPT/HCPCS: 72141 ==

== ENCOUNTER 2022-07-07 12:12 | Emergency (ER) | payer OTHER | END 2022-07-07 15:13 | disposition home or self-care (01) | LOC: ERS 12:12 | DX: S09.90XA Unspecified injury of head, initial encounter (principal); M25.561 Pain in right knee; M25.562 Pain in left knee; M25.512 Pain in left shoulder; M79.671 Pain in right foot; E11.9 Type 2 diabetes mellitus without complications; I10 Essential (primary) hypertension; M10.9 Gout, unspecified; Z79.899 Other long term (current) drug therapy; W01.0XXA Fall on same level from slipping, tripping and stumbling without subsequent striking against object, initial encounter | CPT/HCPCS: 70450; 72125 ==

== ENCOUNTER 2022-08-03 11:58 | Outpatient (CLI) | payer OTHER | END 2022-08-03 11:59 | disposition home or self-care (01) | LOC: ULT 11:58 | PROVIDERS: ATTEND Family Medicine | DX: E04.1 Nontoxic single thyroid nodule (principal); R93.7 Abnormal findings on diagnostic imaging of other parts of musculoskeletal system; M19.012 Primary osteoarthritis, left shoulder | CPT/HCPCS: 76536 ==

== ENCOUNTER 2022-09-12 12:16 | Outpatient (CLI) | payer OTHER | END 2022-09-12 12:17 | disposition home or self-care (01) | LOC: BICMAMMO 12:16 | PROVIDERS: ATTEND Family Medicine | DX: Z12.31 Encounter for screening mammogram for malignant neoplasm of breast (principal); R92.1 Mammographic calcification found on diagnostic imaging of breast; R92.8 Other abnormal and inconclusive findings on diagnostic imaging of breast | CPT/HCPCS: 77067 ==

== ENCOUNTER 2022-11-29 11:32 | Outpatient (CLI) | payer OTHER | END 2022-11-29 11:33 | disposition home or self-care (01) | LOC: ULT 11:32 | PROVIDERS: ATTEND Nurse Practitioner Family | DX: R25.2 Cramp and spasm (principal); I70.292 Other atherosclerosis of native arteries of extremities, left leg | CPT/HCPCS: 93923; 93970 ==

== ENCOUNTER 2023-08-14 17:00 | Outpatient (CLI) | payer OTHER | END 2023-08-14 17:01 | disposition home or self-care (01) | LOC: SLEEPLAB 17:00 | PROVIDERS: ATTEND Family Medicine | DX: R53.83 Other fatigue (principal); E11.9 Type 2 diabetes mellitus without complications; E66.9 Obesity, unspecified; I10 Essential (primary) hypertension; G47.33 Obstructive sleep apnea (adult) (pediatric) | CPT/HCPCS: 95811 ==

== ENCOUNTER 2024-02-06 15:16 | Emergency (ER) | payer OTHER | END 2024-02-06 22:04 | disposition home or self-care (01) | LOC: ERS 15:16 | DX: G89.18 Other acute postprocedural pain (principal); M25.461 Effusion, right knee; D64.9 Anemia, unspecified; I82.409 Acute embolism and thrombosis of unspecified deep veins of unspecified lower extremity; E11.9 Type 2 diabetes mellitus without complications; I10 Essential (primary) hypertension; E78.00 Pure hypercholesterolemia, unspecified; Z79.899 Other long term (current) drug therapy; Z79.82 Long term (current) use of aspirin; Z79.85 Long-term (current) use of injectable non-insulin antidiabetic drugs | CPT/HCPCS: 36415; 36416; 75635; 80053; 82550; 83605; 85025; 85610; 85730; 86141; 86850; 86900; 86901; Q9967 ==

== ENCOUNTER 2025-07-20 22:30 | Emergency (ER) | payer MEDICAID, OTHER ==
[2025-07-21 02:07] LABS: #Basophils Less than 0.03 10x3/uL (0.0-0.2); #Eosinophils 0.21 10x3/uL (0.0-0.7); #Monocytes 0.74 10x3/uL (0.11-0.59); #Neutrophils 5.52 10x3/uL (1.40-6.50); %Basophils 0.1 % (0.0-1.0); %Eosinophils 2.5 % (0.0-10.0); %Lymphocytes 21.7 % (21.0-51.0); %Monocytes 8.9 % (0.0-10.0); %Neutrophils 66.3 % (42.0-75.0); Hematocrit 28.1 % (36.0-47.0); Hemoglobin 9.1 g/dL (12.0-16.0); Mean Corpuscular Hemoglobin 31.2 pg (27.0-31.0); Mean Corpuscular Volume 96.2 fL (78.0-98.0); Platelet Count 199 10x3/uL (130-400); Red Blood Cell (RBC) Count 2.92 mill/uL (4.20-5.40); White Blood Cell (WBC) Count 8.33 10x3/uL (4.8-10.8)
[2025-07-21 02:28] LABS: ALT (SGPT) 16 U/L (Less than 34); AST (SGOT) 33 U/L (11-34); Albumin 3.0 g/dL (3.1-4.5); Alkaline Phosphatase 75 U/L (40-110); Anion Gap 11 mmol/L (10-20); BUN (Urea Nitrogen) 31 mg/dL (9.8-20.1); Bilirubin, Total 1.0 mg/dL (0.3-1.2); Calc. Creatinine Clearance 0 mL/min (70-130); Calcium 9.0 mg/dL (7.8-10.44); Carbon Dioxide 25 mmol/L (22-29); Chloride 104 mmol/L (98-107); Globulin 3.3 g/dL (2.4-3.5); Glucose 112 mg/dL (70-105); Magnesium 2.1 mg/dL (1.6-2.6); Potassium 4.4 mmol/L (3.5-5.1); Sodium 136 mmol/L (136-145)
[2025-07-21] MEDS ORDERED: Ondansetron PF 4 MG/2 ML Vial ONE (02:52)
[2025-07-21] MEDS ORDERED: Iopamidol 370 76% 100 ML VIAL ONE (12:16)
== END 2025-07-21 05:37 | disposition home or self-care (01) ==
LOC: ERS 22:30
DX: M79.89 Other specified soft tissue disorders (principal); I10 Essential (primary) hypertension; E11.9 Type 2 diabetes mellitus without complications; E78.00 Pure hypercholesterolemia, unspecified; Z79.899 Other long term (current) drug therapy; Z79.82 Long term (current) use of aspirin
CPT/HCPCS: 75635; 80053; 83605; 83735; 85025; 96374; 96375; J2270; J2405